=== PATIENT | female | born 1995 | race Caucasian/White ===

== ENCOUNTER 2016-09-04 17:42 | Emergency (ER) | payer MEDICAID ==
--- NOTE | 2016-09-04 17:58 | ER Document Report ---
ED Medical Screen (RME) - General Stated Complaint: SORE THROAT Mode of Arrival: Ambulatory Information source: Patient Notes: Patient presents from the urgent care center referred here for narrowing of subglottic area per xray with c/o sore throat, fever. Reports hurts to swallow, hurts to move neck. + Fever. Treated with penicillin and steroids by urgent care. I have greeted and performed a rapid initial assessment of this patient. A comprehensive ED assessment and evaluation of the patient, analysis of test results and completion of the medical decision making process will be conducted by additional ED providers. TRAVEL OUTSIDE OF THE [place] IN LAST 30 DAYS: No - Related Data Allergies/Adverse Reactions: control Adverse Reaction (Uncoded 09/04/16 17:54) Past Medical History Renal/ Medical History: Reports: Hx Kidney Stones Skin Medical History: Reports Hx Eczema Psychiatric Medical History: Reports: Hx Anxiety Past Surgical History: Reports: Hx Adenoidectomy - [place] teeth, Hx Oral Surgery , Hx Tonsillectomy - Immunizations Hx Diphtheria, Pertussis, Tetanus Vaccination: No - refuses
[2016-09-04 18:28] LABS: ABSOLUTE MONOCYTES (AUTO) 0.1 10^3/uL (0.1-1.4); ABSOLUTE NEUT (AUTO) 8.5 10^3/uL (1.7-8.2); BASOPHILS % (AUTO) 0.1 % (0-2); EOSINOPHILS % (AUTO) 0.1 % (0-6); HEMATOCRIT 41.7 % (36.0-47.0); HEMOGLOBIN 13.5 g/dL (12.0-15.5); HGB HCT DIFFERENCE -1.2; LYMPHOCYTES % (AUTO) 10.8 % (13-45); MEAN CORPUSCULAR HEMOGLOBIN 25.3 pg (27.0-33.4); MEAN CORPUSCULAR HGB CONC 32.3 g/dL (32.0-36.0); MEAN CORPUSCULAR VOLUME 78 fl (80-97); MONOCYTES % (AUTO) 1.5 % (3-13); RED BLOOD COUNT 5.33 10^6/uL (3.72-5.28); RED CELL DISTRIBUTION WIDTH 14.4 % (11.5-14.0); SEGMENTED NEUTROPHILS % (AUTO) 87.5 % (42-78); WHITE BLOOD COUNT 9.7 10^3/uL (4.0-10.5)
[2016-09-04 18:43] LABS: ALANINE AMINOTRANSFERASE 21 U/L (9-52); ALBUMIN 4.4 g/dL (3.5-5.0); ALKALINE PHOSPHATASE 71 U/L (38-126); ANION GAP 12 (5-19); ASPARTATE AMINO TRANSFERASE 17 U/L (14-36); BILIRUBIN,TOTAL 0.3 mg/dL (0.2-1.3); BLOOD UREA NITROGEN 7 mg/dL (7-20); CALCIUM 9.9 mg/dL (8.4-10.2); CARBON DIOXIDE 29 mmol/L (22-30); CHLORIDE 103 mmol/L (98-107); CREATININE RESULT 0.78 mg/dL (0.52-1.25); GLUCOSE 87 mg/dL (75-110); POTASSIUM 4.2 mmol/L (3.6-5.0); SODIUM 143.5 mmol/L (137-145); TOTAL PROTEIN 7.6 g/dL (6.3-8.2)
--- NOTE | 2016-09-04 19:20 | ER Document Report ---
ED ENT - General Chief Complaint: Sore Throat Stated Complaint: SORE THROAT Mode of Arrival: Ambulatory Information source: Patient Notes: 21 y/o F presents to ED c/o persistent sore throat over the last 2 days. Pt reports was evaluated at urgent care 2 days ago, diagnosed with strep throat and prescribed course of penVk which she states has been taking as directed. Reports symptoms have not improved so she returned to urgent care and was given dose of Decadron 10mg IM and had soft tissue neck xray done. Pt reports was referred to ED for further evaluation. Denies fever, sob, vomiting or drooling. TRAVEL OUTSIDE OF THE [place] IN LAST 30 DAYS: No - HPI Patient complains to provider of: Throat problem Onset/Duration: Persistent Quality of pain: Achy Severity: Moderate Pain Level: 3 Context: Recent Illness Location of pain: Throat Associated symptoms: Sore throat Similar symptoms previously: Yes Recently seen / treated by doctor: Yes - Related Data Allergies/Adverse Reactions: control Adverse Reaction (Uncoded 09/04/16 17:54) Past Medical History - General Information source: Patient - Social History Smoking Status: Current Every Day Smoker Chew tobacco use (# tins/day): No Frequency of alcohol use: Social Drug Abuse: None Lives with: Family Family History: Reviewed & Not Pertinent Patient has suicidal ideation: No Patient has homicidal ideation: No Renal/ Medical History: Reports: Hx Kidney Stones. Denies: Hx Peritoneal Dialysis Skin Medical History: Reports Hx Eczema Psychiatric Medical History: Reports: Hx Anxiety Past Surgical History: Reports: Hx Adenoidectomy - [place] teeth, Hx Oral Surgery , Hx Tonsillectomy - Immunizations Hx Diphtheria, Pertussis, Tetanus Vaccination: Yes Review of Systems - Review of Systems Constitutional: No symptoms reported EENT: See HPI Cardiovascular: No symptoms reported Respiratory: No symptoms reported Gastrointestinal: No symptoms reported Genitourinary: No symptoms reported Female Genitourinary: No symptoms reported Musculoskeletal: No symptoms reported Skin: No symptoms reported Hematologic/Lymphatic: No symptoms reported Neurological/Psychological: No symptoms reported -: Yes All other systems reviewed and negative Physical Exam - Vital signs Vitals: Temp Pulse Resp BP Pulse Ox 98.1 F 66 16 128/84 H 99 09/04/16 18:00 09/04/16 18:00 09/04/16 18:00 09/04/16 18:00 09/04/16 18:00 Interpretation: Normal - General General appearance: Appears well, Alert In distress: None - HEENT Head: Normocephalic, Atraumatic Eyes: Normal Conjunctiva: Normal Eyelashes: Normal Pupils: PERRL Ears: Normal External canal: Normal Tympanic membrane: Normal Sinus: Normal Nasal: Normal Mouth/Lips: Normal Mucous membranes: Normal, Moist Pharynx: Erythema. No: Normal, Blood in hypopharynx, Exudate, Peritonsillar abscess, Post nasal drainage, Retropharyngeal abscess, Tonsillar hypertrophy, Uvular edema, Potential airway comprom., Other Neck: Normal. No: Anterior cervical chain, Posterior cervical chain, Lymphadenopathy, Meningismus, Subcutaneous emphysema - Respiratory Respiratory status: No respiratory distress Chest status: Nontender Breath sounds: Normal Chest palpation: Normal - Cardiovascular Rhythm: Regular Heart sounds: Normal auscultation Murmur: No Pulses: Normal: Radial Normal capillary refill: Yes - Abdominal Inspection: Normal Distension: No distension Bowel sounds: Normal Tenderness: Nontender Organomegaly: No organomegaly - Back Back: Normal, Nontender - Extremities General upper extremity: Normal inspection, Nontender, Normal color, Normal ROM , Normal temperature General lower extremity: Normal inspection, Nontender, Normal color, Normal ROM , Normal temperature, Normal weight bearing. No: Sloan's sign - Neurological Neuro grossly intact: Yes Cognition: Normal Orientation: AAOx4 Nesmith Coma Scale Eye Opening: Spontaneous [place] Coma Scale Verbal: Oriented Nesmith Coma Scale Motor: Obeys Commands Nesmith Coma Scale Total: 15 Speech: Normal Motor strength normal: LUE, RUE, LLE, RLE Sensory: Normal - Psychological Associated symptoms: Normal affect, Normal mood - Skin Skin Temperature: Warm Skin Moisture: Dry Skin Color: Normal Skin Turgor: Elastic Course - Re-evaluation Re-evalutation: 09/04/16 19:20 Patient hemodynamically stable, in no distress, afebrile, tolerating oral fluids without difficulty or vomiting. Review patient's records from urgent care which include negative mono test and soft tissue neck x-ray which shows mild narrowing of the subglottic area with no epiglottitis or other abnormalities. Patient appears stable for discharge and no suggestion of tonsillar abscess, epiglottitis, or other emergent etiology at this time. Patient given Decadron 10 mg IM earlier today at urgent care and therefore does not require additional dose of steroid at this time and was encouraged to continue taking previously prescribed course of Pen-Vee K as directed. Patient presentation and findings were discussed with ED physician Dr. Pedroza who also assessed patient at the bedside and agrees with evaluation and treatment plan. - Vital Signs Vital signs: Temp Pulse Resp BP Pulse Ox 98.2 F 62 16 120/74 97 09/04/16 19:41 09/04/16 19:41 09/04/16 18:00 09/04/16 19:41 09/04/16 19:41 - Laboratory Result Diagrams: 09/04/16 18:06 09/04/16 18:06 Laboratory results interpreted by me: 09/04/16 18:06 RBC 5.33 H MCV 78 L MCH 25.3 L RDW 14.4 H Seg Neutrophils % 87.5 H Lymphocytes % 10.8 L Monocytes % 1.5 L Absolute Neutrophils 8.5 H - Diagnostic Test Radiology reviewed: Image reviewed, Reports reviewed Discharge - Discharge Clinical Impression: Sore throat Condition: Stable Disposition: HOME, SELF-CARE Additional Instructions: SORE THROAT: Sore throats may be caused by viruses, bacteria, or fungi. Most are due to a virus, and must get better on their own. Bacterial sore throats, particularly those due to "strep," need treatment with antibiotics. If an antibiotic is prescribed, be sure to take the medication for a full 10 days. Failure to take the antibiotic can result in complications such as rheumatic fever. Sometimes, an injection of antibiotics is given instead of pills or liquid. This single "shot" is equal in effectiveness to the oral medication. To relieve symptoms, take acetaminophen for pain. Sip clear liquids frequently, or eat popsicles or ice chips. Anesthetic sprays or lozenges may help. Make sure the air in the room is not too dry. Avoid using decongestants or antihistamines. Call the doctor if there is no improvement in two days, or if you have difficulty breathing, increasing throat pain, high fever, rash, or frequent vomiting. FOLLOW-UP CARE: Continue drinking plenty of fluids and taking your previously prescribed antibiotic as directed. The injection of steroid medication you were given earlier today will remain in your system for the next 2-3 days. Return to the emergency department for reevaluation if you do not feel any improvement in 12 hours and definitely if you have any worsening symptoms or any concerns. Prescriptions: Phenol/Sodium Phenolate [Chloraseptic Sore Throat [place] 177 ml] 2 sprays MM Q4HP PRN #1 bottle PRN Reason:
[2016-09-04 19:43] VITALS: BP 120/74
== END 2016-09-04 19:43 | disposition home or self-care (01) ==
LOC: ER 17:42
DX: J02.9 Acute pharyngitis, unspecified (principal); Z79.899 Other long term (current) drug therapy; F17.210 Nicotine dependence, cigarettes, uncomplicated
CPT/HCPCS: 36415; 80053; 85025; 99283

== ENCOUNTER → 2016-09-04 | Outpatient (CLI) | payer MEDICAID | LOC: OD 15:35 | PROVIDERS: ATTEND Nurse Practitioner Acute Care | DX: J02.9 Acute pharyngitis, unspecified (principal) | CPT/HCPCS: 36415; 70360; 86308 ==

== ENCOUNTER → 2017-05-05 | Outpatient (CLI) | payer MEDICAID ==
--- NOTE | 2017-05-05 15:48 | RADIOLOGY REPORT (SQ) ---
EXAM DESCRIPTION: U/S [id number] TRNABD 1GES W/ODOP COMPLETED DATE/TIME: 05/05/2017 2:06 pm REASON FOR STUDY: ENCOUNTER FOR SUPERVISION OF OTHER NORMAL , FIRST TRIMESTER (Z34.8 Z34.81 ENCOUNTER FOR SUPRVSN OF NORMAL , FIRST TRIM COMPARISON: None. TECHNIQUE: Transabdominal static and realtime grayscale images acquired of the pelvis. Additional se lected spectral and color Doppler images recorded. All images stored on PACs. bHCG: Not available. LIMITATIONS: None. FINDINGS: FETUS: There are 2 well-formed gestational sacs with poles. EGA: 7 weeks 1 day MILLY: 12/21/2017 FHR: 150/145 beats per minute. SUBCHORIONIC BLEED: No SIZE OF BLEED: Not applicable. UTERUS: No masses. No anomalies. 11.3 x 6.6 x 5.9 cm. CERVICAL LENGTH: 3 cm. Closed. RIGHT ADNEXA: Right ovary measures 2.5 x 2.5 x 2.6 cm. There is a 2 x 1.8 x 1.7 cm cyst. No adnexal free fluid. No adnexal masses. LEFT ADNEXA: Left ovary measures 3.5 x 3.2 x 1.8 cm and is normal. No adnexal free fluid. No adnexal masses. FREE FLUID: None. OTHER: No other significant finding. IMPRESSION: There is a live twin gestation of 7 weeks 1 day with an estimated date of delivery of 12/21/2017. Trimester of : First - 0 to 13 weeks. TECHNICAL DOCUMENTATION: JOB ID: [id number] [employer]- All Rights Reserved
== END ==
LOC: RAD 13:06
PROVIDERS: ATTEND Nurse Practitioner Women's Health
DX: Z34.81 Encounter for supervision of other normal pregnancy, first trimester (principal)
CPT/HCPCS: 76801; 76802

== ENCOUNTER 2017-05-06 14:05 | Emergency (ER) | payer MEDICAID ==
[2017-05-06] MEDS ORDERED: NORMAL SALINE 1000 ML 1,000 ML IV ONE ×2 (15:44→17:09)
--- NOTE | 2017-05-06 15:48 | ER Document Report ---
HPI - HPI Patient complains to provider of: vomiting Onset: Other Onset/Duration: Persistent Quality of pain: Achy Severity: Mild Pain Level: 3 Context: Patient states she is currently and has been experiencing vomiting for several weeks. Is currently being seen by the health department, had an ultrasound yesterday which showed an intrauterine with twins. Patient denies any vaginal bleeding. Patient denies fever. She states she had similar episodes of vomiting with previous pregnancies. Associated Symptoms: Vomiting Exacerbated by: Denies Relieved by: Denies Similar symptoms previously: Yes Recently seen / treated by doctor: Yes - ROS ROS below otherwise negative: Yes Systems Reviewed and Negative: Yes All other systems reviewed and negative - CONSTITUTIONAL Constitutional: DENIES: Fever - EENT EENT: DENIES: Congestion - NEURO Neurology: DENIES: Headache - CARDIOVASCULAR Cardiovascular: DENIES: Chest pain - RESPIRATORY Respiratory: DENIES: Trouble Breathing - GASTROINTESTINAL Gastrointestinal: REPORTS: Abdominal Pain - Epigastric - URINARY Urinary: DENIES: Dysuria - REPRODUCTIVE Reproductive: REPORTS: : - MUSCULOSKELETAL Musculoskeletal: DENIES: Extremity pain - DERM Skin Color: Normal Past Medical History - General Information source: Patient - Social History Smoking Status: Never Smoker Frequency of alcohol use: None Drug Abuse: None Lives with: Family Family History: Reviewed & Not Pertinent Patient has suicidal ideation: No Patient has homicidal ideation: No Renal/ Medical History: Reports: Hx Kidney Stones Skin Medical History: Reports Hx Eczema Psychiatric Medical History: Reports: Hx Anxiety Past Surgical History: Reports: Hx Adenoidectomy - [place] teeth, Hx Oral Surgery , Hx Tonsillectomy - Immunizations Hx Diphtheria, Pertussis, Tetanus Vaccination: Yes Vertical Provider Document - CONSTITUTIONAL Agree With Documented VS: Yes Exam Limitations: No Limitations General Appearance: WD/WN, No Apparent Distress - INFECTION CONTROL TRAVEL OUTSIDE OF THE [place] IN LAST 30 DAYS: No - HEENT HEENT: Atraumatic, Normal ENT Exam, Normocephalic - NECK Neck: Normal Inspection, Supple - RESPIRATORY Respiratory: Breath Sounds Normal, No Respiratory Distress O2 Sat by Pulse Oximetry: 100 - CARDIOVASCULAR Cardiovascular: Regular Rate, Regular Rhythm - GI/ABDOMEN Gastrointestinal: Abdomen Soft, Abdomen Tender - Mild tenderness across epigastric area, Normal Bowel Sounds - REPRODUCTIVE Female Genitalia: Normal Inspection - MUSCULOSKELETAL/EXTREMETIES Musculoskeletal/Extremeties: MAEW - NEURO Level of Consciousness: Awake, Alert, Appropriate - DERM Integumentary: Warm, Dry, No Rash Course - Re-evaluation Re-evalutation: 05/06/17 17:55 Patient states she is feeling better after bags of fluid and Tylenol for her headache. States she does have a history of UTIs when asked because her urine today showed bacteria in it. - Vital Signs Vital signs: Temp Pulse Resp BP Pulse Ox 98.6 F 75 14 135/62 H 100 05/06/17 14:33 05/06/17 14:33 05/06/17 14:33 05/06/17 14:33 05/06/17 14:33 Discharge - Discharge Clinical Impression: Hyperemesis arising during , Bacteria in urine Condition: Good Disposition: HOME, SELF-CARE Instructions: Antinausea Medication ([facility]) Additional Instructions: You are being given antibiotics for 3 days pending urine culture. Phenergan as needed for nausea Push fluids Call your CLERICAL ADMINISTRATIVE ASSISTANT tomorrow for recheck Return as needed Prescriptions: Nitrofurantoin Monohyd/M-Cryst [Macrobid 100 mg Capsule] 100 mg PO BID #10 capsule Promethazine HCl [Phenergan 25 mg Tablet] 25 mg PO ASDIR PRN #15 tablet PRN Reason:
[2017-05-06] MEDS ORDERED: PYRIDOXINE HCL 50 MG TABLET PO ONE (16:50)
[2017-05-06] MEDS ORDERED: ACETAMINOPHEN 325 MG TABLET PO ONE (16:50)
[2017-05-06 17:01] LABS: APPEARANCE,URINE SLIGHTLY-CLOUDY; BILIRUBIN,URINE NEGATIVE (NEGATIVE); GLUCOSE, URINE NEGATIVE (NEGATIVE); KETONES,URINE NEGATIVE (NEGATIVE); LEUKOCYTE ESTERASE,URINE MODERATE (NEGATIVE); NITRITE,URINE NEGATIVE (NEGATIVE); PROTEIN,URINE NEGATIVE (NEGATIVE)
[2017-05-06 18:42] VITALS: BP 112/60
== END 2017-05-06 18:42 | disposition home or self-care (01) ==
LOC: ER 14:05
DX: O21.0 Mild hyperemesis gravidarum (principal); R82.71 Bacteriuria; Z87.440 Personal history of urinary (tract) infections; Z87.442 Personal history of urinary calculi
CPT/HCPCS: 99283; 96360; 96361; 87086; 87088; 81001; J3490 ×2; J7030

== ENCOUNTER 2017-05-21 21:18 | Emergency (ER) | payer MEDICAID ==
[2017-05-21 21:31] VITALS: BP 121/82
--- NOTE | 2017-05-21 22:50 | ER Document Report ---
ED Medical Screen (RME) - General Chief Complaint: Vaginal Bleeding Stated Complaint: LOWER BACK PAIN,VAGINAL BLEEDING Time Seen by Provider: 05/21/17 22:40 Notes: Patient is a 9-1/2 week gravid with twins 21-year-old female presents to the emergency department complaining of pelvic cramping, spotting and low back pain. She states that she was working on her feet all today and she felt that her back pain was getting worse. She states she has been having it for a couple of days but felt more severe today. She then got home from work and she noticed some dark bleeding on her underwear. States she has been having pelvic cramping and was told it was nothing on Friday which she saw her primary care doctor. Otherwise she denies any other issues. TRAVEL OUTSIDE OF THE [place] IN LAST 30 DAYS: No - Related Data Allergies/Adverse Reactions: control Adverse Reaction (Uncoded 05/06/17 14:33) Past Medical History Renal/ Medical History: Reports: Hx Kidney Stones. Denies: Hx Peritoneal Dialysis Skin Medical History: Reports Hx Eczema Psychiatric Medical History: Reports: Hx Anxiety Past Surgical History: Reports: Hx Adenoidectomy - [place] teeth, Hx Oral Surgery , Hx Tonsillectomy - Immunizations Hx Diphtheria, Pertussis, Tetanus Vaccination: Yes Physical Exam - Vital signs Vitals: Temp Pulse Resp BP Pulse Ox 97.8 F 115 H 18 121/82 100 05/21/17 21:24 05/21/17 21:24 05/21/17 21:24 05/21/17 21:24 05/21/17 21:24 - General General appearance: Appears well, Alert In distress: None - Respiratory Respiratory status: No respiratory distress Chest status: Nontender Breath sounds: Normal Chest palpation: Normal - Cardiovascular Rhythm: Regular Heart sounds: Normal auscultation, S1 appreciated, S2 appreciated Gallop: None auscultated Pulses: Normal: Radial Course - Vital Signs Vital signs: Temp Pulse Resp BP Pulse Ox 97.8 F 115 H 18 121/82 100 05/21/17 21:24 05/21/17 21:24 05/21/17 21:24 05/21/17 21:24 05/21/17 21:24
[2017-05-21 23:25] LABS: APPEARANCE,URINE CLEAR; BILIRUBIN,URINE NEGATIVE (NEGATIVE); GLUCOSE, URINE NEGATIVE (NEGATIVE); KETONES,URINE NEGATIVE (NEGATIVE); LEUKOCYTE ESTERASE,URINE LARGE (NEGATIVE); NITRITE,URINE NEGATIVE (NEGATIVE); PROTEIN,URINE NEGATIVE (NEGATIVE); URINE SPECIFIC GRAVITY 1.004; UROBILINOGEN,URINE NEGATIVE mg/dL (<2.0)
[2017-05-21 23:39] LABS: ABSOLUTE LYMPHOCYTES (AUTO) 2.5 10^3/uL (0.5-4.7); ABSOLUTE MONOCYTES (AUTO) 0.5 10^3/uL (0.1-1.4); BASOPHILS % (AUTO) 0.1 % (0-2); EOSINOPHILS % (AUTO) 0.1 % (0-6); HEMATOCRIT 34.5 % (36.0-47.0); HEMOGLOBIN 11.9 g/dL (12.0-15.5); HGB HCT DIFFERENCE 1.2; LYMPHOCYTES % (AUTO) 19.1 % (13-45); MEAN CORPUSCULAR HEMOGLOBIN 27.3 pg (27.0-33.4); MEAN CORPUSCULAR HGB CONC 34.5 g/dL (32.0-36.0); MEAN CORPUSCULAR VOLUME 79 fl (80-97); RED BLOOD COUNT 4.35 10^6/uL (3.72-5.28); RED CELL DISTRIBUTION WIDTH 14.5 % (11.5-14.0); SEGMENTED NEUTROPHILS % (AUTO) 76.7 % (42-78)
[2017-05-21 23:48] LABS: ALANINE AMINOTRANSFERASE 33 U/L (9-52); ALBUMIN 4.1 g/dL (3.5-5.0); ALKALINE PHOSPHATASE 44 U/L (38-126); ANION GAP 10 (5-19); ASPARTATE AMINO TRANSFERASE 16 U/L (14-36); BILIRUBIN,DIRECT 0.2 mg/dL (0.0-0.4); BILIRUBIN,TOTAL 0.2 mg/dL (0.2-1.3); BLOOD UREA NITROGEN 7 mg/dL (7-20); CALCIUM 9.6 mg/dL (8.4-10.2); CARBON DIOXIDE 24 mmol/L (22-30); CHLORIDE 104 mmol/L (98-107); CREATININE RESULT 0.57 mg/dL (0.52-1.25); GLUCOSE 93 mg/dL (75-110); POTASSIUM 3.7 mmol/L (3.6-5.0); SODIUM 137.9 mmol/L (137-145); TOTAL PROTEIN 6.6 g/dL (6.3-8.2)
--- NOTE | 2017-05-22 01:14 | RADIOLOGY REPORT (SQ) ---
EXAM DESCRIPTION: U/S 1TRIMESTER/1GEST W/DOPPLER CLINICAL HISTORY: 21 years, Female, PELVIC CRAMPING AND SPOTTING COMPARISON: Compared to the obstetrical ultrasound examination of May 05, 2017. TECHNIQUE: History scale and M-mode techniques were utilized to perform this examination. LIMITATIONS: None. FINDINGS: Twin . Suspect dichorionic/diamniotic twin . Cervical os is closed. Cervical length measures approximately 3.2 cm. Placenta previa. Twin A: Twin A is located to the right. CRL equals 3.2 cm equaling gestational age of 10 weeks 1 day. Consistent heart rate of 182 bpm using M-mode technique. Twin B: Twin B is located to the left. CRL equals 2.9 cm equaling gestational age of 9 weeks 5 days. Consistent heart rate of 168 bpm using M-mode technique. Sliver-like hypodensity inferior to the placenta measuring 13 mm x 5.1 mm x 21 mm in greatest dimension. Suspect this represents a small focus of subchorionic hemorrhage. Noncalcified none septated right ovarian cyst measuring 2.1 cm in greatest dimension. Overall, the right ovary measures 2.9 cm x 2.7 cm x 2.6 cm in greatest dimension. Strong arterial and venous blood flow to the right ovary using color Doppler and spectral Doppler waveform analysis techniques respectively. The left ovary appears normal and measures 2.8 cm x 4.0 cm x 2.3 cm in greatest dimension. There is strong arterial and venous blood flow to left ovary using color Doppler and spectral Doppler waveform analysis techniques respectively. No free pelvic fluid. IMPRESSION: 1. Living DC/DA twin with twin A gestational age equaling 10 weeks 1 day and twin B gestational age equaling 9 weeks 5 days. 2. Benign-appearing 2.1 cm right ovarian cyst possibly representing a right corpus luteal cyst. The ovaries are otherwise normal. No evidence of ovarian torsion. 3. Small region of suspected subchorionic hemorrhage just inferior to the gestational sac as described above. 4. No free pelvic fluid. 2011 [employer]- All Rights Reserved
[2017-05-22] MEDS ORDERED: CEPHALEXIN 500 MG CAPSULE PO ONE (01:28)
--- NOTE | 2017-05-22 01:35 | ER Document Report ---
ED General - General Chief Complaint: Vaginal Bleeding Stated Complaint: LOWER BACK PAIN,VAGINAL BLEEDING Time Seen by Provider: 05/21/17 22:40 Notes: Patient is a 21-year-old female at approximately 10 weeks with twin who presents with a small amount of vaginal bleeding today as well as lower abdominal cramping and back pain. Does describe the lower abdominal pain and back pain as a dull, intermittent, cramping pain. States that the pain is moderately worsened by standing up and walking around and improved with rest. She denies a history of similar pain during this . States she became concerned when she had a small amount of blood on her underwear today that appeared to be more like a brownish discharge than micky blood. She has not spoken to her KEY ATTENDANT regarding today's concerns. No history of similar symptoms during this . She has not had any fever, but does note dysuria. TRAVEL OUTSIDE OF THE [place] IN LAST 30 DAYS: No - Related Data Allergies/Adverse Reactions: control Adverse Reaction (Uncoded 05/06/17 14:33) Past Medical History - General Information source: Patient - Social History Smoking Status: Never Smoker Frequency of alcohol use: None Drug Abuse: None Lives with: Spouse/Significant other Family History: Reviewed & Not Pertinent Patient has suicidal ideation: No Patient has homicidal ideation: No Renal/ Medical History: Reports: Hx Kidney Stones. Denies: Hx Peritoneal Dialysis Skin Medical History: Reports Hx Eczema Psychiatric Medical History: Reports: Hx Anxiety Past Surgical History: Reports: Hx Adenoidectomy - [place] teeth, Hx Oral Surgery , Hx Tonsillectomy - Immunizations Hx Diphtheria, Pertussis, Tetanus Vaccination: Yes Review of Systems - Review of Systems Notes: Constitutional: Negative for fever. HENT: Negative for sore throat. Eyes: Negative for visual changes. Cardiovascular: Negative for chest pain. Respiratory: Negative for shortness of breath. Gastrointestinal: Positive for lower abdominal pain. Genitourinary: Positive for dysuria. Musculoskeletal: Positive for back pain. Skin: Negative for rash. Neurological: Negative for headaches, weakness or numbness. 10 point ROS negative except as marked above and in HPI. Physical Exam - Vital signs Vitals: Temp Pulse Resp BP Pulse Ox 97.8 F 115 H 18 121/82 100 05/21/17 21:24 05/21/17 21:24 05/21/17 21:24 05/21/17 21:24 05/21/17 21:24 Interpretation: Tachycardic Notes: PHYSICAL EXAMINATION: GENERAL: Well-appearing, well-nourished and in no acute distress. HEAD: Atraumatic, normocephalic. EYES: Pupils equal round and reactive to light, extraocular movements intact, sclera anicteric, conjunctiva are normal. ENT: nares patent, oropharynx clear without exudates. Moist mucous membranes. NECK: Normal range of motion, supple without lymphadenopathy LUNGS: Breath sounds clear to auscultation bilaterally and equal. No wheezes rales or rhonchi. HEART: Regular rate and rhythm without murmurs ABDOMEN: Gravid uterus. Soft, nontender, normoactive bowel sounds. No guarding , no rebound. No masses appreciated. EXTREMITIES: Normal range of motion, no pitting or edema. No cyanosis. NEUROLOGICAL: No focal neurological deficits. Moves all extremities spontaneously and on command. PSYCH: Normal mood, normal affect. SKIN: Warm, Dry, normal turgor, no rashes or lesions noted. Course - Re-evaluation Re-evalutation: 05/22/17 03:34 Patient presents with a mild amount of vaginal bleeding in the setting of an early first trimester . Patient has no abdominal or back tenderness at time of presentation on examination. No active bleeding at time of presentation. She is Rh positive. Patient's abdominal exam is otherwise benign without any focal tenderness. Repeat transvaginal ultrasound here shows a possible small subchorionic hemorrhage and to viable fetuses. I do not suspect an acute appendicitis, pyelonephritis, urinalysis does show findings consistent with likely cystitis particularly given patient's report of pressure and burning with urination. A culture has been sent and she was started on cephalexin. Or bowel obstruction. At this time will discharge with return precautions and follow-up recommendations. Verbal discharge instructions given a the bedside and opportunity for questions given. Medication warnings reviewed. Patient is in agreement with this plan and has verbalized understanding of return precautions and the need for primary care follow-up in the next 24-72 hours. - Vital Signs Vital signs: Temp Pulse Resp BP Pulse Ox 97.8 F 115 H 18 121/82 100 05/21/17 21:24 05/21/17 21:24 05/21/17 21:24 05/21/17 21:24 05/21/17 21:24 - Laboratory Result Diagrams: 05/21/17 23:06 05/21/17 23:06 Laboratory results interpreted by me: 05/21/17 05/21/17 05/21/17 22:30 23:06 23:06 WBC 13.0 H Hgb 11.9 L Hct 34.5 L MCV 79 L RDW 14.5 H Absolute Neutrophils 10.0 H Beta HCG, Quant 991131.00 H Urine Blood SMALL H Ur Leukocyte Esterase LARGE H - Diagnostic Test Radiology reviewed: Reports reviewed Discharge - Discharge Clinical Impression: Cystitis, Vaginal bleeding during , antepartum Condition: Good Disposition: HOME, SELF-CARE Additional Instructions: Your ultrasound today shows a living intrauterine . You do have a small subchorionic hemorrhage. Many pregnancies with this complication can go on to become normal pregnancies. Please follow closely with your primary care KEY ATTENDANT. Please return if you develop severe abdominal pain, bleeding that goes through more than 2 pads for more than 2 hours, pass out, or have any other symptoms that are concerning to you. Please follow-up closely with your OBGYN regarding todays visit. Your also being started on a course of antibiotics his urine seems to suggest an infection at this time. Take until completed. Prescriptions: Cephalexin Monohydrate [Keflex 500 mg Capsule] 500 mg PO Q6H 5 Days capsule
== END 2017-05-22 01:58 | disposition home or self-care (01) ==
LOC: ER 21:18
DX: O23.11 Infections of bladder in pregnancy, first trimester (principal); O20.8 Other hemorrhage in early pregnancy; O26.891 Other specified pregnancy related conditions, first trimester; O30.041 Twin pregnancy, dichorionic/diamniotic, first trimester; Z3A.09 9 weeks gestation of pregnancy
CPT/HCPCS: 36415; 76801; 76802; 80053; 81001; 84702; 85025; 87086; 87088; 93976; 99284

== ENCOUNTER 2017-08-08 23:52 | Outpatient (CLI) | payer MEDICAID ==
[2017-08-09 00:28] LABS: APPEARANCE,URINE CLEAR; BILIRUBIN,URINE NEGATIVE (NEGATIVE); GLUCOSE, URINE NEGATIVE (NEGATIVE); KETONES,URINE NEGATIVE (NEGATIVE); LEUKOCYTE ESTERASE,URINE SMALL (NEGATIVE); NITRITE,URINE NEGATIVE (NEGATIVE); PROTEIN,URINE NEGATIVE (NEGATIVE); URINE SPECIFIC GRAVITY 1.003; UROBILINOGEN,URINE NEGATIVE mg/dL (<2.0)
[2017-08-09 01:17] LABS: URINE BARBITURATES SCREEN NEGATIVE; URINE METHADONE SCREEN NEGATIVE; URINE OPIATES LOW NEGATIVE; URINE PHENCYCLIDINE SCREEN NEGATIVE
--- NOTE | 2017-08-09 02:37 | RADIOLOGY REPORT (SQ) ---
EXAM DESCRIPTION: U/S OB LIMITED CLINICAL HISTORY: 21 years, Female, well being and cervical length COMPARISON: 10.4.17 TECHNIQUE/LIMITATIONS: Limited, targeted exam requested obstetrical parameters. Transvaginal. FINDINGS: Cervical: Length: 3.7 cm. Closed. Twin A: Cardiac activity: 141 bpm. Breech. Posterior placental location. Largest fluid pocket: 5.5 cm. Twin B: Cardiac activity: 153 bpm. Transverse. Anterior placenta location. Largest fluid pocket: 4.8 cm. PHILOMENA 17.1 cm, clear. IMPRESSION: Limited, targeted exam requested obstetrical parameters. 2010 [employer]- All Rights Reserved
== END 2017-08-09 02:54 | disposition home or self-care (01) ==
LOC: LC 23:52
PROVIDERS: ATTEND Obstetrics & Gynecology
PROC: 4A1HXCZ Monitoring of Products of Conception, Cardiac Rate, External Approach (ICD-10-PCS; principal; 2017-08-08)
DX: O47.02 False labor before 37 completed weeks of gestation, second trimester (principal); Z3A.20 20 weeks gestation of pregnancy
CPT/HCPCS: 76815; 80307; 81001

== ENCOUNTER 2017-09-23 11:28 | Outpatient (CLI) | payer MEDICAID ==
[2017-09-23 11:56] LABS: AMORPHOUS SEDIMENT,URINE TRACE /HPF; APPEARANCE,URINE SLIGHTLY-CLOUDY; BILIRUBIN,URINE NEGATIVE (NEGATIVE); COLOR,URINE YELLOW; GLUCOSE, URINE NEGATIVE (NEGATIVE); KETONES,URINE NEGATIVE (NEGATIVE); LEUKOCYTE ESTERASE,URINE LARGE (NEGATIVE); NITRITE,URINE NEGATIVE (NEGATIVE); PROTEIN,URINE NEGATIVE (NEGATIVE); URINE SPECIFIC GRAVITY 1.003; UROBILINOGEN,URINE NEGATIVE mg/dL (<2.0)
[2017-09-23 12:10] LABS: URINE AMPHETAMINES SCREEN NEGATIVE; URINE BARBITURATES SCREEN NEGATIVE; URINE BENZODIAZEPINES SCREEN NEGATIVE; URINE COCAINE SCREEN NEGATIVE; URINE MARIJUANA (THC) SCREEN NEGATIVE; URINE METHADONE SCREEN NEGATIVE; URINE PHENCYCLIDINE SCREEN NEGATIVE
[2017-09-23] MEDS ORDERED: BETAMET ACET/BETAMET NA INJ 6 MG/1 ML IM ONE (13:06)
[2017-09-23] MEDS ORDERED: RINGERS SOLUTION,LACTATED 1,000 ML IV ONE (13:11)
[2017-09-23] MEDS ORDERED: RINGERS SOLUTION,LACTATED 1,000 ML IV PRN (13:11)
[2017-09-23] MEDS ORDERED: PENICILLIN G-K 5 MILLION UNIT VIAL ONE (13:17)
[2017-09-23] MEDS ORDERED: MAGNESIUM SULFATE 4 GM/100 ML RTUPB IV ONE ×2 (13:17→13:18)
[2017-09-23] MEDS ORDERED: MAGNESIUM SULFATE 20 GM/500 ML RTUINJ IV PRN (13:18)
[2017-09-23] MEDS ORDERED: PENICILLIN G POTASSIUM 5,000,000 UNIT in DEXTROSE 5%-WATER 100 ML IV ONE (13:20)
[2017-09-23] MEDS ORDERED: BETAMET ACET/BETAMET NA INJ 6 MG/1 ML ONE (13:30)
[2017-09-23 13:54] LABS: ABSOLUTE EOSINOPHILS # (AUTO) 0.1 10^3/uL (0.0-0.6); ABSOLUTE LYMPHOCYTES (AUTO) 2.2 10^3/uL (0.5-4.7); ABSOLUTE MONOCYTES (AUTO) 0.9 10^3/uL (0.1-1.4); ABSOLUTE NEUT (AUTO) 8.9 10^3/uL (1.7-8.2); BASOPHILS % (AUTO) 0.2 % (0-2); EOSINOPHILS % (AUTO) 0.6 % (0-6); HEMATOCRIT 35.6 % (36.0-47.0); LYMPHOCYTES % (AUTO) 17.9 % (13-45); MEAN CORPUSCULAR HGB CONC 33.6 g/dL (32.0-36.0); MEAN CORPUSCULAR VOLUME 83 fl (80-97); MONOCYTES % (AUTO) 7.6 % (3-13); PLATELET COUNT 192 10^3/uL (150-450); RED BLOOD COUNT 4.28 10^6/uL (3.72-5.28); RED CELL DISTRIBUTION WIDTH 14.4 % (11.5-14.0); SEGMENTED NEUTROPHILS % (AUTO) 73.7 % (42-78); TOTAL CELLS COUNTED % (AUTO) 100 %; WHITE BLOOD COUNT 12.1 10^3/uL (4.0-10.5)
[2017-09-23 14:16] LABS: ALANINE AMINOTRANSFERASE 28 U/L (9-52); ALBUMIN 3.6 g/dL (3.5-5.0); ALKALINE PHOSPHATASE 66 U/L (38-126); ANION GAP 8 (5-19); ASPARTATE AMINO TRANSFERASE 14 U/L (14-36); BILIRUBIN,TOTAL 0.1 mg/dL (0.2-1.3); BLOOD UREA NITROGEN 3 mg/dL (7-20); CARBON DIOXIDE 24 mmol/L (22-30); CHLORIDE 106 mmol/L (98-107); GLUCOSE 84 mg/dL (75-110); LDH 337 U/L (313-618); POTASSIUM 3.7 mmol/L (3.6-5.0); TOTAL PROTEIN 5.8 g/dL (6.3-8.2)
[2017-09-23] MEDS ORDERED: PENICILLIN G POTASSIUM 2,500,000 UNIT in DEXTROSE 5%-WATER 50 ML IV SCH (17:21)
== END 2017-09-23 14:58 | disposition home or self-care (01) ==
LOC: LC 11:28
PROVIDERS: ATTEND Obstetrics & Gynecology Gynecology
PROC: 4A1HXCZ Monitoring of Products of Conception, Cardiac Rate, External Approach (ICD-10-PCS; principal; 2017-09-23)
DX: O60.02 Preterm labor without delivery, second trimester (principal); O30.002 Twin pregnancy, unspecified number of placenta and unspecified number of amniotic sacs, second trimester; Z3A.27 27 weeks gestation of pregnancy
CPT/HCPCS: 59899; 94760; 96372; 36415; 83615; 85025; 86592; 80053; 81001; 86701; 80307; 82239; J3475; J2540; J0702

== ENCOUNTER 2017-10-19 16:04 | Inpatient (IN) | payer MEDICAID ==
[2017-10-19] MEDS ORDERED: PENICILLIN G-K 5 MILLION UNIT VIAL ONE ×2 (16:43→20:54)
[2017-10-19] MEDS ORDERED: BETAMET ACET/BETAMET NA INJ 6 MG/1 ML ONE (16:43)
[2017-10-19] MEDS ORDERED: NIFEDIPINE 10 MG CAPSULE ONE ×3 (16:43→17:55)
[2017-10-19] MEDS ORDERED: PENICILLIN G POTASSIUM 5,000,000 UNIT in DEXTROSE 5%-WATER 100 ML IV ONE (17:00)
[2017-10-19] MEDS ORDERED: NALBUPHINE HCL INJ 10 MG/1 ML AMPULE IV ONE (17:00)
[2017-10-19 17:01] LABS: ABSOLUTE EOSINOPHILS # (AUTO) 0.1 10^3/uL (0.0-0.6); ABSOLUTE LYMPHOCYTES (AUTO) 2.9 10^3/uL (0.5-4.7); ABSOLUTE MONOCYTES (AUTO) 0.9 10^3/uL (0.1-1.4); ABSOLUTE NEUT (AUTO) 10.5 10^3/uL (1.7-8.2); BASOPHILS % (AUTO) 0.1 % (0-2); EOSINOPHILS % (AUTO) 0.5 % (0-6); HEMATOCRIT 37.8 % (36.0-47.0); HEMOGLOBIN 12.6 g/dL (12.0-15.5); LYMPHOCYTES % (AUTO) 19.9 % (13-45); MEAN CORPUSCULAR HEMOGLOBIN 27.7 pg (27.0-33.4); MEAN CORPUSCULAR HGB CONC 33.2 g/dL (32.0-36.0); MEAN CORPUSCULAR VOLUME 83 fl (80-97); MONOCYTES % (AUTO) 6.2 % (3-13); PLATELET COUNT 199 10^3/uL (150-450); RED BLOOD COUNT 4.54 10^6/uL (3.72-5.28); RED CELL DISTRIBUTION WIDTH 13.9 % (11.5-14.0); SEGMENTED NEUTROPHILS % (AUTO) 73.3 % (42-78); TOTAL CELLS COUNTED % (AUTO) 100 %; WHITE BLOOD COUNT 14.4 10^3/uL (4.0-10.5)
[2017-10-19 17:04] LABS: APPEARANCE,URINE CLEAR; BILIRUBIN,URINE NEGATIVE (NEGATIVE); COLOR,URINE YELLOW; GLUCOSE, URINE NEGATIVE (NEGATIVE); KETONES,URINE TRACE mg/dL (NEGATIVE); LEUKOCYTE ESTERASE,URINE LARGE (NEGATIVE); NITRITE,URINE NEGATIVE (NEGATIVE); PROTEIN,URINE NEGATIVE (NEGATIVE); URINE SPECIFIC GRAVITY 1.004; UROBILINOGEN,URINE NEGATIVE mg/dL (<2.0)
[2017-10-19] MEDS ORDERED: PROMETHAZINE HCL INJ 25 MG/1 ML VIAL IV ONE (17:15)
[2017-10-19] MEDS ORDERED: BETAMET ACET/BETAMET NA INJ 6 MG/1 ML IM ONE (17:15)
[2017-10-19 17:23] LABS: URINE AMPHETAMINES SCREEN NEGATIVE; URINE BARBITURATES SCREEN NEGATIVE; URINE BENZODIAZEPINES SCREEN NEGATIVE; URINE COCAINE SCREEN NEGATIVE; URINE MARIJUANA (THC) SCREEN NEGATIVE; URINE METHADONE SCREEN NEGATIVE; URINE PHENCYCLIDINE SCREEN NEGATIVE
[2017-10-19] MEDS: NIFEDIPINE 10 MG CAPSULE PO PRN ×3 (17:26→17:56)
[2017-10-19] MEDS: RINGERS SOLUTION,LACTATED 1,000 ML IV PRN ×2 (17:29→18:43)
[2017-10-19] MEDS ORDERED: NALBUPHINE HCL INJ 10 MG/1 ML AMPULE IV PRN (17:46)
[2017-10-19] MEDS ORDERED: PROMETHAZINE HCL INJ 25 MG/1 ML VIAL IV PRN (17:46)
[2017-10-19] MEDS ORDERED: PROMETHAZINE HCL INJ 25 MG/1 ML VIAL ONE (18:40)
[2017-10-19] MEDS ORDERED: NALBUPHINE HCL INJ 10 MG/1 ML AMPULE ONE (18:40)
[2017-10-19] MEDS ORDERED: CITRIC ACID/SODIUM CITRATE ORAL SOLN 15 ML UDCUP ONE (19:46)
[2017-10-19] MEDS ORDERED: MISOPROSTOL 0.2 MG TABLET ONE (19:46)
[2017-10-19] MEDS ORDERED: CEFAZOLIN 2 GM/D5W RTU 2 GM/50 ML RTUPB IV ONE (19:47)
[2017-10-19] MEDS ORDERED: OXYTOCIN/NORMAL SALINE 20 UNIT/1,000 ML RTUINJ ONE (19:47)
[2017-10-19] MEDS: PENICILLIN G POTASSIUM 2,500,000 UNIT in DEXTROSE 5%-WATER 50 ML IV SCH (21:02)
[2017-10-19] MEDS ORDERED: PHENYLEPHRINE HCL INJ/PF 10 MG/1 ML SDV ONE (21:24)
[2017-10-19] MEDS ORDERED: EPHEDRINE SULFATE INJ 50 MG/1 ML AMPULE ONE (21:24)
[2017-10-19] MEDS ORDERED: FENTANYL CITRATE INJ/PF 100 MCG/2 ML AMPUL ONE (21:24)
[2017-10-19] MEDS ORDERED: FENTANYL/BUPIVACAINE/NS/PF 200 MCG/100 ML RTUINJ EPI ONE (21:25)
[2017-10-19] MEDS ORDERED: BUPIVACAINE HCL 0.25 % INJ/PF (2.5 MG/1 ML) 30 ML VIAL ONE (21:25)
[2017-10-20] MEDS ORDERED: PENICILLIN G-K 5 MILLION UNIT VIAL ONE ×3 (00:52→08:52)
[2017-10-20] MEDS: PENICILLIN G POTASSIUM 2,500,000 UNIT in DEXTROSE 5%-WATER 50 ML IV SCH ×2 (00:57→04:48)
[2017-10-20] MEDS ORDERED: NIFEDIPINE 10 MG CAPSULE ONE ×4 (03:43→19:45)
[2017-10-20] MEDS ORDERED: BUPIVACAINE HCL 0.25 % INJ/PF (2.5 MG/1 ML) 30 ML VIAL ONE (04:05)
[2017-10-20] MEDS ORDERED: FENTANYL/BUPIVACAINE/NS/PF 200 MCG/100 ML RTUINJ EPI ONE (04:05)
[2017-10-20] MEDS ORDERED: PENICILLIN G-K 5 MILLION UNIT VIAL IV SCH (08:00)
[2017-10-20] MEDS ORDERED: DIPHENHYDRAMINE HCL 25 MG CAPSULE PO ONE (13:46)
[2017-10-20] MEDS ORDERED: DIPHENHYDRAMINE HCL 25 MG CAPSULE ONE (13:51)
[2017-10-21] MEDS: NIFEDIPINE 10 MG CAPSULE PO SCH ×3 (01:02→19:55)
[2017-10-21] MEDS ORDERED: NIFEDIPINE 10 MG CAPSULE ONE ×3 (03:20→19:56)
[2017-10-21 13:31] LABS: APPEARANCE,URINE SLIGHTLY-CLOUDY; BILIRUBIN,URINE NEGATIVE (NEGATIVE); COLOR,URINE YELLOW; GLUCOSE, URINE NEGATIVE (NEGATIVE); KETONES,URINE NEGATIVE (NEGATIVE); LEUKOCYTE ESTERASE,URINE LARGE (NEGATIVE); NITRITE,URINE NEGATIVE (NEGATIVE); PROTEIN,URINE 30 mg/dL (NEGATIVE); URINE SPECIFIC GRAVITY 1.012; UROBILINOGEN,URINE NEGATIVE mg/dL (<2.0)
--- NOTE | 2017-10-21 15:01 | L&D Progress Notes ---
PROGRESS NOTES Datetime Report Generated by CPN: 10/21/2017 15:00 PROGRESS NOTE Impression: Labor Plan: Continue Present Management Informed Consent Obtained: Risks, Benefits and Alternatives Discussed Vital Signs : Reviewed; Within Normal Limits Comment: patient doing well. No further contractions. Indicates +FM x 2. feels "much better". Plan to re-evaluate in AM and if no change in cervix at that time and no further contractions will proceed with discharge home with strict instructions. Starting Keflex now for UTI. VAGINAL EXAM Dilatation: 4 Effacement: 80 Station: 1 MEMBRANES Pooling: Negative Membranes: Intact FETUS A FHR - Baseline: 140 Monitoring: External US Variability: Moderate 6-25bpm Accelerations: 10X10 Decelerations: None : 31.4 : 31.2 Estimated Weight (gm): 1800 Estimated Weight (gm): 1800 Presentation: Vertex FETUS B FHR - Baseline: 145 Monitoring: External US Variability: Moderate 6-25bpm Accelerations: 10X10 Decelerations: None Gestational Age by US: 31.4 Gestational Age by US: 31.2 Estimated Weight (gm): 1800 Estimated Weight (gm): 1800 Presentation: Breech Presentation: Breech SIGNATURE SIGNATURE: [id number] Signature: with User ID: [email or web address]
[2017-10-21] MEDS ORDERED: CEPHALEXIN 500 MG CAPSULE PO SCH (22:00)
[2017-10-22] MEDS ORDERED: NIFEDIPINE 10 MG CAPSULE ONE (03:26)
[2017-10-22] MEDS ORDERED: CEPHALEXIN 500 MG CAPSULE ONE (03:26)
--- NOTE | 2017-10-29 08:31 | Admission Physical ---
Datetime Report Generated by MAXIMUS: 10/29/2017 08:30 Chief Complaint: Uterine Contractions Indication for Induction: Not Applicable Indication for Induction: , Intrauterine Admit Impression- Other: Twin Gestation, previous ACS protocol completed 4 wks ago. Neuroprotection mag given also at that time. gbs + Admit Plan: Admit to Unit; Initiate Labor Protocol Medication Allergies: No Medication Allergies: Mirena Latex: No Latex Allergies Food Allergies: N/A Environmental Allergies: N/A EDC: 12/19/2017 00:00 : 6 Para: 3 Term: 3 : 0 SAB: 1 IAB: 1 Ectopic: 0 Livin Cesareans: 0 VBACs: 0 Multiple Births: 0 Gestational Diabetes: No Rh Sensitization: No Incompetent Cervix: No DAYRON: No Infertility: No ART Treatment: No Uterine Anomaly: No IUGR: No Hx Previous C/S: No Macrosomia: No Hx Loss/Stillborn: No PIH: No Hx : No Placenta Previa/Abruption: No Depression/PP Depression: Yes PTL/PROM: No Post Hemorrhage: No Current Procedures: Ultrasound; NST Alcohol: No Marijuana : No Cocaine: No Other Illicit Drugs: No Cigarettes: Current Everyday Smoker. [id number] Cigarette Frequency: > 10 per day Advised to Stop: Yes Diabetes: No Blood Transfusion: No Pulmonary Disease (Asthma, TB): No Breast Disease: No Hypertension: No Learning Technologies Specialist Surgery: No Heart Disease: No Hosp/Surgery: Yes Autoimmune Disorder: No Anesthetic Complications: No Kidney Disease: Yes Abnormal Pap Smear: No Neuro/Epilepsy: No Psychiatric Disorders: No Other Medical Diseases: No Hepatitis/Liver Disease: No Significant Family History: No Varicosities/Phlebitis: No Trauma/Violence : No Thyroid Dysfunction: No Gonorrhea: No Genital Herpes: No Chlamydia: Yes Tuberculosis: No Syphilis: No Hepatitis: No HIV/AIDS Exposure: No Rash or Viral Illness: No HPV: No General: Normal HEENT: Normal Neurologic: Normal Thyroid: Normal Heart: Normal Lungs: Normal Breast: Normal Back: Normal Abdomen: Normal Genitourinary Exam: Normal Extremities: Normal DTRs: Normal Pelvic Type: Adequate Vital Signs: Reviewed; Within Normal Limits Dilatation: 4 Effacement: 80 Station: 1 Pooling: Negative Membranes: Intact Monitoring: External US FHR- Baseline: 140 Variability: Moderate 6-25bpm Accelerations: 10X10 Decelerations: None FHR Category: Category I FHR Comments: appropriate for gestational age Estimated Weight (gm): 1800 Presentation: Vertex Admit Comment: will give rescue dose of ACS and attempt tocolysis with Procardia. Patient counseled to anticipate delivery but will try to delay as much as possible. Monitoring: External US Monitoring: External US Monitoring: External US Monitoring: External US Monitoring: External US Monitoring: External US Monitoring: External US Monitoring: External US Monitoring: External US Monitoring: External US Monitoring: External US Monitoring: External US Monitoring: External US Monitoring: External US Monitoring: External US Monitoring: External US Monitoring: External US Monitoring: External US Monitoring: External US Monitoring: External US Monitoring: External US Monitoring: External US Monitoring: External US Monitoring: External US Monitoring: External US Monitoring: External US Monitoring: External US Monitoring: External US Monitoring: External US Monitoring: External US Monitoring: External US Monitoring: External US Monitoring: External US Monitoring: External US Monitoring: External US Monitoring: External US Monitoring: External US Monitoring: External US Monitoring: External US Monitoring: External US Monitoring: External US Variability: Moderate 6-25bpm Accelerations: 10X10 Decelerations: None FHR Category: Category I FHR Comments: appropriate for gestational age Estimated Weight (gm): 1800 Presentation: Breech Labor and Delivery: None Pain Management: Epidural Feeding Preference: Breast Benefit of Breast Feed Discussed: Yes Circumcision: N/A Signature: with User ID: [email or web address]
== END 2017-10-22 07:24 | disposition home or self-care (01) | DRG 778 ==
LOC: LC 16:04 → LR 16:42
PROVIDERS: ADMIT Obstetrics & Gynecology; ATTEND Obstetrics & Gynecology
PROC: 4A1HXCZ Monitoring of Products of Conception, Cardiac Rate, External Approach (ICD-10-PCS; principal; 2017-10-19)
DX: O60.03 Preterm labor without delivery, third trimester (principal); O23.43 Unspecified infection of urinary tract in pregnancy, third trimester; O30.003 Twin pregnancy, unspecified number of placenta and unspecified number of amniotic sacs, third trimester; O32.1XX1 Maternal care for breech presentation, fetus 1; O32.1XX2 Maternal care for breech presentation, fetus 2; O99.333 Smoking (tobacco) complicating pregnancy, third trimester; F17.210 Nicotine dependence, cigarettes, uncomplicated; O99.343 Other mental disorders complicating pregnancy, third trimester; F32.9 Major depressive disorder, single episode, unspecified; F41.9 Anxiety disorder, unspecified; O99.820 Streptococcus B carrier state complicating pregnancy; Z3A.31 31 weeks gestation of pregnancy
CPT/HCPCS: 36415; 59025; 80307; 81001; 85025; 86592; 86850; 86900; 86901; 87086; 87088; 87186; J0690; J0702; J2300; J2370; J2540; J2550; J2590; J3010; J3490

== ENCOUNTER 2017-10-29 21:04 | Outpatient (CLI) | payer MEDICAID ==
--- NOTE | 2017-10-29 21:11 | Admission Physical ---
Datetime Report Generated by CPN: 10/29/2017 21:11 CURRENT ADMISSION Chief Complaint: Uterine Contractions Indication for Induction: Not Applicable Indication for Induction: , Intrauterine Admit Impression- Other: Twin Gestation, previous ACS protocol completed 4 wks ago. Neuroprotection mag given also at that time. gbs + Admit Plan: Admit to Unit; Initiate Labor Protocol ALLERGIES Medication Allergies: No Medication Allergies: Mirena Latex: No Latex Allergies Food Allergies: N/A Environmental Allergies: N/A OBSTETRICAL HISTORY EDC: 12/19/2017 00:00 : 6 Para: 3 Term: 3 : 0 SAB: 1 IAB: 1 Ectopic: 0 Livin Cesareans: 0 VBACs: 0 Multiple Births: 0 Gestational Diabetes: No Rh Sensitization: No Incompetent Cervix: No DAYRON: No Infertility: No ART Treatment: No Uterine Anomaly: No IUGR: No Hx Previous C/S: No Macrosomia: No Hx Loss/Stillborn: No PIH: No Hx : No Placenta Previa/Abruption: No Depression/PP Depression: Yes PTL/PROM: No Post Hemorrhage: No Current Procedures: Ultrasound; NST Obstetrical History Comments: G1: 2010, AshishSURESHD, 37 weeks G2: 2011, Ashish , 37.3 weeks G3: 2014, Ashish , 38 weeks G4: 2015, EAB G5: 2016, Bilated Ovum G6: current; dionna twins SEE RECORDS Alcohol: No Marijuana : No Cocaine: No Other Illicit Drugs: No Cigarettes: Current Everyday Smoker. 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: No Heart Disease: No Hosp/Surgery: Yes Autoimmune Disorder: No Anesthetic Complications: No Kidney Disease: Yes Abnormal Pap Smear: No Neuro/Epilepsy: No Psychiatric Disorders: No Other Medical Diseases: No Hepatitis/Liver Disease: No Significant Family History: No Varicosities/Phlebitis: No Trauma/Violence : No Thyroid Dysfunction: No Medical History Comments: Depression, Anxiety, UTI, T_A, wisdom teeth; Anorexia _ Bulemia INFECTIOUS HISTORY Gonorrhea: No Genital Herpes: No Chlamydia: Yes Tuberculosis: No Syphilis: No Hepatitis: No HIV/AIDS Exposure: No Rash or Viral Illness: No HPV: No Infectious History Comments: Hx of + Chlamydia, JUAN Neg PHYSICAL EXAM General: Normal HEENT: Normal Neurologic: Normal Thyroid: Normal Heart: Normal Lungs: Normal Breast: Normal Back: Normal Abdomen: Normal Genitourinary Exam: Normal Extremities: Normal DTRs: Normal Pelvic Type: Adequate Vital Signs: Reviewed; Within Normal Limits VAGINAL EXAM Dilatation: 4 Effacement: 80 Station: 1 MEMBRANES Pooling: Negative Membranes: Intact FETUS A EGA: 31.2 Monitoring: External US FHR- Baseline: 140 Variability: Moderate 6-25bpm Accelerations: 10X10 Decelerations: None FHR Category: Category I FHR Comments: appropriate for gestational age Estimated Weight (gm): 1800 Presentation: Vertex Admit Comment: will give rescue dose of ACS and attempt tocolysis with Procardia. Patient counseled to anticipate delivery but will try to delay as much as possible. FETUS B Monitoring: External US Variability: Moderate 6-25bpm Accelerations: 10X10 Decelerations: None FHR Category: Category I FHR Comments: appropriate for gestational age Estimated Weight (gm): 1800 Presentation: Breech PLANS FOR LABOR AND DELIVERY Labor and Delivery: None Pain Management: Epidural Feeding Preference: Breast Benefit of Breast Feed Discussed: Yes Circumcision: N/A INFORMED CONSENT Informed Consent Obtained: Risks, Benefits and Alternatives Discussed Signature: with User ID: [email or web address]
[2017-10-29 22:04] LABS: APPEARANCE,URINE CLEAR; BILIRUBIN,URINE NEGATIVE (NEGATIVE); COLOR,URINE STRAW; GLUCOSE, URINE NEGATIVE (NEGATIVE); KETONES,URINE NEGATIVE (NEGATIVE); LEUKOCYTE ESTERASE,URINE LARGE (NEGATIVE); NITRITE,URINE NEGATIVE (NEGATIVE); PROTEIN,URINE NEGATIVE (NEGATIVE); URINE SPECIFIC GRAVITY 1.002; UROBILINOGEN,URINE NEGATIVE mg/dL (<2.0)
[2017-10-29 22:11] LABS: AMNISURE (ROM) NEGATIVE (NEGATIVE)
[2017-10-29 22:19] LABS: URINE AMPHETAMINES SCREEN NEGATIVE; URINE BARBITURATES SCREEN NEGATIVE; URINE BENZODIAZEPINES SCREEN NEGATIVE; URINE COCAINE SCREEN NEGATIVE; URINE MARIJUANA (THC) SCREEN NEGATIVE; URINE METHADONE SCREEN NEGATIVE; URINE PHENCYCLIDINE SCREEN NEGATIVE
--- NOTE | 2017-10-29 23:10 | Non Stress Test Report ---
Non Stress Test Datetime Report Generated by CPN: 10/29/2017 23:09 DEMOGRAPHIC Test Number: 1 EGA NST: 32.5 INDICATION Indication for Study (NST) Other: LC URINE RESULTS Urine Protein, NST: Negative Urine Ketones - NST: Negative Urine Glucose - NST: Negative Urine Blood - NST: Negative MONITORING Monitor Explained: Monitor Explained; Test Explained; Patient Verbalized Understanding Time on Monitor: 10/29/2017 21:33 Time off Monitor: 10/29/2017 23:08 NST Duration: 95 NST INTERVENTIONS NST Interventions: PO Hydration; Reposition Patient Physician Notified NST: Beth BABY A: [id number] BABY A Movement : Present Contraction Frequency : x2 +irritability FHR Baseline : 135 Accelerations : 15X15 Decelerations : None Variability : Moderate 6-25bpm NST Review: Meets Criteria for Reactive NST NST Review and Verified By : Yann Nichols RNC NST Results: Reactive BABY B Movement: Present FHR Baseline: 135 Accelerations: 15X15 Decelerations: None Variability: Moderate 6-25bpm NST Review: Meets Criteria for Reactive NST NST Reviewed And Verified By: Yann Nichols RNC NST Results: Reactive NST REPORT Report Trigger: Send Report
== END 2017-10-29 23:15 | disposition home or self-care (01) ==
LOC: LC 21:04
PROVIDERS: ATTEND Obstetrics & Gynecology Gynecology
PROC: 4A1HXCZ Monitoring of Products of Conception, Cardiac Rate, External Approach (ICD-10-PCS; principal; 2017-10-29)
DX: O47.03 False labor before 37 completed weeks of gestation, third trimester (principal); O30.003 Twin pregnancy, unspecified number of placenta and unspecified number of amniotic sacs, third trimester; O99.820 Streptococcus B carrier state complicating pregnancy; O99.333 Smoking (tobacco) complicating pregnancy, third trimester; F17.210 Nicotine dependence, cigarettes, uncomplicated; Z3A.32 32 weeks gestation of pregnancy
CPT/HCPCS: 59025; 80307; 81001; 84112

== ENCOUNTER 2017-10-31 10:20 | Inpatient (IN) | payer MEDICAID ==
[2017-10-31] MEDS ORDERED: PENICILLIN G-K 5 MILLION UNIT VIAL ONE ×2 (10:57→14:45)
[2017-10-31] MEDS ORDERED: RINGERS SOLUTION,LACTATED 1,000 ML IV PRN (10:57)
[2017-10-31] MEDS ORDERED: RINGERS SOLUTION,LACTATED 1,000 ML IV ONE (10:57)
[2017-10-31] MEDS ORDERED: PENICILLIN G POTASSIUM 5,000,000 UNIT in DEXTROSE 5%-WATER 100 ML IV ONE (10:57)
[2017-10-31 11:53] LABS: ABSOLUTE LYMPHOCYTES (AUTO) 2.2 10^3/uL (0.5-4.7); ABSOLUTE MONOCYTES (AUTO) 0.9 10^3/uL (0.1-1.4); ABSOLUTE NEUT (AUTO) 9.5 10^3/uL (1.7-8.2); BASOPHILS % (AUTO) 0.1 % (0-2); EOSINOPHILS % (AUTO) 0.3 % (0-6); HEMATOCRIT 38.5 % (36.0-47.0); HEMOGLOBIN 12.8 g/dL (12.0-15.5); LYMPHOCYTES % (AUTO) 17.5 % (13-45); MEAN CORPUSCULAR HEMOGLOBIN 27.7 pg (27.0-33.4); MEAN CORPUSCULAR HGB CONC 33.2 g/dL (32.0-36.0); MEAN CORPUSCULAR VOLUME 84 fl (80-97); MONOCYTES % (AUTO) 7.2 % (3-13); PLATELET COUNT 173 10^3/uL (150-450); RED BLOOD COUNT 4.61 10^6/uL (3.72-5.28); RED CELL DISTRIBUTION WIDTH 13.7 % (11.5-14.0); SEGMENTED NEUTROPHILS % (AUTO) 74.9 % (42-78); TOTAL CELLS COUNTED % (AUTO) 100 %; WHITE BLOOD COUNT 12.6 10^3/uL (4.0-10.5)
--- NOTE | 2017-10-31 12:31 | Admission Physical ---
Datetime Report Generated by CPN: 10/31/2017 12:31 CURRENT ADMISSION Chief Complaint: Uterine Contractions; Suspected Ruptured Membranes Chief Complaint: Uterine Contractions; Suspected Ruptured Membranes Indication for Induction: Not Applicable Indication for Induction: Not Applicable Admit Impression : , Intrauterine ; Active Labor; Ruptured Membranes Admit Plan: Admit to Unit; Initiate Labor Protocol; Initiate Labor Protocol ALLERGIES Medication Allergies: levonorgestrel (10/31/2017) PHYSICAL EXAM General: Normal HEENT: Normal Neurologic: Normal Thyroid: Deferred Heart: Normal Lungs: Normal Breast: Deferred Back: Normal Abdomen: Normal Genitourinary Exam: Normal Extremities: Normal DTRs: Normal Pelvic Type: Adequate Vital Signs: Reviewed VAGINAL EXAM Dilatation: 5 Effacement: 80 Station: -2 Contraction Comments: q 2-3 FETUS A EGA: 33.0 EGA: 33.0 Monitoring: External US FHR- Baseline: 130 Variability: Moderate 6-25bpm Accelerations: 15X15 Decelerations: None; Prolonged FHR Category: Category I Estimated Weight (gm): 1800 Presentation: Vertex Admit Comment: 22yo at 33+0ega presents from the office with SROM 3 days ago. She was seen 2 days ago with positive pooling but negative amnisure and sent home. She reports that her cramping and leaking increased during the day yesterday and came in for her NST today. Fern verified by 3 providers in the office with positive nitrizine. Spotting noted. Cvx now 5/80/-2 (was previously 3cm). Reviewed SROM with pooling and valsava on exam and regular ctx upon presentation. GBS pos - PCN for GBS pos. Pt considering epidural. Pt is steroid complete and has recieved a rescue dose approx 2 wks ago. Also recieved magnesium for neuroprotection 2 wks ago. Reviewed if attains 6-7 will augment labor if needed. Vtx/breech presentation. REviewed vaginal delivery versus section. Pt desires vaginal delivery and risk and complications reviewed. Desires BTL. Plan for delivery in the OR due to TIUP. NICU aware. INFORMED CONSENT Informed Consent Obtained: Vaginal Delivery; Risks, Benefits and Alternatives Discussed Signature: with User ID: [email or web address]
[2017-10-31] MEDS ORDERED: EPHEDRINE SULFATE INJ 50 MG/1 ML AMPULE ONE (13:08)
[2017-10-31] MEDS ORDERED: FENTANYL CITRATE INJ/PF 100 MCG/2 ML AMPUL ONE (13:08)
[2017-10-31] MEDS ORDERED: PHENYLEPHRINE HCL INJ/PF 10 MG/1 ML SDV ONE (13:08)
[2017-10-31] MEDS ORDERED: BUPIVACAINE HCL 0.25 % INJ/PF (2.5 MG/1 ML) 30 ML VIAL ONE (13:09)
[2017-10-31] MEDS ORDERED: FENTANYL/BUPIVACAINE/NS/PF 200 MCG/100 ML RTUINJ EPI ONE (13:09)
--- NOTE | 2017-10-31 13:23 | L&D Progress Notes ---
PROGRESS NOTES Datetime Report Generated by CPN: 10/31/2017 13:22 PROGRESS NOTE Impression: Normal Progression of Labor Procedures: Sterile Vag Exam Plan: Continue Present Management; Anticipate Vaginal Delivery Informed Consent Obtained: Vaginal Delivery; Risks, Benefits and Alternatives Discussed Informed Consent Obtained: Vaginal Delivery; Risks, Benefits and Alternatives Discussed Vital Signs : Reviewed Comment: cvx 7/90/0. Pt now requesting epidural. Cervical change noted. PPROM. Anticipate . Pt desires c/s if distress and unable to deliver twins vaginally. Reviewed with attempt version of 2nd baby to vertex for delivery. Anticipate VAGINAL EXAM Dilatation: 7 Dilatation: 5 Effacement: 90 Effacement: 80 Station: 0 Station: -2 Contractions: q 2-5 Contractions: q 2-3 FETUS A FHR - Baseline: 145 Monitoring: External US Variability: Moderate 6-25bpm Accelerations: 15X15 Decelerations: None FHR Category: Category I : 31.4 Estimated Weight (gm): 1800 Presentation: Vertex FETUS B FHR - Baseline: 155 Monitoring: External US Variability: Moderate 6-25bpm Accelerations: 15X15 Decelerations: None FHR Category: Category I Presentation: Breech SIGNATURE SIGNATURE: [id number];[id number];[id number] SIGNATURE: [id number];[id number];[id number] SIGNATURE: 14,[id number];[id number];13,[id number] SIGNATURE: [id number];10,[id number] Signature: with User ID: [email or web address]
[2017-10-31 13:26] LABS: APPEARANCE,URINE SLIGHTLY-CLOUDY; BILIRUBIN,URINE NEGATIVE (NEGATIVE); COLOR,URINE YELLOW; GLUCOSE, URINE NEGATIVE (NEGATIVE); KETONES,URINE NEGATIVE (NEGATIVE); LEUKOCYTE ESTERASE,URINE LARGE (NEGATIVE); NITRITE,URINE NEGATIVE (NEGATIVE); PROTEIN,URINE NEGATIVE (NEGATIVE); URINE SPECIFIC GRAVITY 1.004; UROBILINOGEN,URINE NEGATIVE mg/dL (<2.0)
[2017-10-31 13:50] LABS: URINE AMPHETAMINES SCREEN NEGATIVE; URINE BARBITURATES SCREEN NEGATIVE; URINE BENZODIAZEPINES SCREEN NEGATIVE; URINE COCAINE SCREEN NEGATIVE; URINE MARIJUANA (THC) SCREEN NEGATIVE; URINE METHADONE SCREEN NEGATIVE; URINE PHENCYCLIDINE SCREEN NEGATIVE
--- NOTE | 2017-10-31 14:06 | L&D Progress Notes ---
PROGRESS NOTES Datetime Report Generated by CPN: 10/31/2017 14:06 PROGRESS NOTE Impression: Normal Progression of Labor Procedures: Sterile Vag Exam Plan: Continue Present Management; Anticipate Vaginal Delivery Informed Consent Obtained: Vaginal Delivery; Risks, Benefits and Alternatives Discussed Vital Signs : Reviewed Comment: cvx 7-/0. Pt reporting pop and bloody show noted with o/w clear amniotic fluid. Able to now feel a bag on the left - AROM of forebag performed due to unstoppable PTL with PPROM. Anticipate . Pt desires c/s if distress and unable to deliver twins vaginally. Reviewed with attempt version of 2nd baby to vertex for delivery. Anticipate VAGINAL EXAM Dilatation: 7 Effacement: 90 Station: 0 Contractions: q 2-5 FETUS A FHR - Baseline: 145 Monitoring: External US Variability: Moderate 6-25bpm Accelerations: 15X15 Decelerations: None FHR Category: Category I FETUS B FHR - Baseline: 155 Monitoring: External US Variability: Moderate 6-25bpm Accelerations: 15X15 Decelerations: None FHR Category: Category I Presentation: Breech FETUS C SIGNATURE: [id number];,[id number];[id number] Signature: Electronically signed by Gisel Smith MD ([facility]) on 10/31/2017 at 14:06 with User ID: [email or web address]
[2017-10-31] MEDS ORDERED: PENICILLIN G POTASSIUM 2,500,000 UNIT in DEXTROSE 5%-WATER 50 ML IV SCH (14:57)
[2017-10-31] MEDS ORDERED: LIDOCAINE 2%/EPINEPHRINE INJ 20 ML VIAL ONE (14:59)
[2017-10-31] MEDS ORDERED: SODIUM BICARBONATE 8.4% INJ 50 MEQ/50 ML DISP.SYRIN ONE (14:59)
[2017-10-31] MEDS ORDERED: MISOPROSTOL 0.2 MG TABLET ONE ×2 (15:00→15:01)
[2017-10-31] MEDS ORDERED: LIDOCAINE 1% INJ-PF (10 MG/ML) 30 ML SDV ONE (15:00)
[2017-10-31] MEDS ORDERED: OXYTOCIN/NORMAL SALINE 20 UNIT/1,000 ML RTUINJ ONE (15:00)
--- NOTE | 2017-10-31 15:16 | L&D Progress Notes ---
PROGRESS NOTES Datetime Report Generated by CPN: 10/31/2017 15:16 PROGRESS NOTE Impression: Normal Progression of Labor Procedures: Sterile Vag Exam Plan: Continue Present Management; Anticipate Vaginal Delivery Informed Consent Obtained: Vaginal Delivery; Risks, Benefits and Alternatives Discussed Vital Signs : Reviewed Comment: Cvx 8-9/c/+1. Anticipate VAGINAL EXAM Dilatation: 8 Effacement: 90 Station: 1 Contractions: q 2-5 FETUS A FHR - Baseline: 145 Monitoring: External US Variability: Moderate 6-25bpm Accelerations: 15X15 Decelerations: None FHR Category: Category I FETUS B FHR - Baseline: 155 Monitoring: External US Variability: Moderate 6-25bpm Accelerations: 15X15 Decelerations: None FHR Category: Category I FETUS C SIGNATURE: [id number];10,[id number];[id number] Signature: with User ID: [email or web address]
[2017-10-31] MEDS ORDERED: OXYTOCIN/NORMAL SALINE 20 UNIT/1,000 ML RTUINJ IV PRN (16:03)
[2017-10-31] MEDS ORDERED: ACETAMINOPHEN WITH CODEINE #3 TABLET PO PRN ×2 (16:03)
[2017-10-31] MEDS ORDERED: PROMETHAZINE HCL INJ 25 MG/1 ML VIAL IV PRN (16:03)
[2017-10-31] MEDS ORDERED: MAGNESIUM HYDROXIDE SUSP 30 ML UDCUP PO PRN (16:03)
[2017-10-31] MEDS ORDERED: GLYCERIN/WITCH HAZEL LEAF 1 EACH MED..PAD TP PRN (16:03)
[2017-10-31] MEDS ORDERED: BENZOCAINE/MENTHOL AEROSOL SPRAY 56 ML TOP PRN (16:03)
[2017-10-31] MEDS ORDERED: PSEUDOEPHEDRINE HCL 30 MG TABLET PO PRN (16:03)
[2017-10-31] MEDS ORDERED: PROMETHAZINE HCL 25 MG TABLET PO PRN (16:03)
[2017-10-31] MEDS ORDERED: ACETAMINOPHEN 325 MG TABLET PO PRN (16:03)
[2017-10-31] MEDS ORDERED: DIBUCAINE 1% OINTMENT 28 GM TP PRN (16:03)
[2017-10-31] MEDS ORDERED: ZOLPIDEM TARTRATE 5 MG TABLET PO PRN (16:03)
[2017-10-31] MEDS ORDERED: MISOPROSTOL 0.2 MG TABLET PR PRN (16:03)
[2017-10-31] MEDS ORDERED: MEASLES,MUMPS&RUBELLA VACC/PF 0.5 ML VIAL SUBCUT PRN (16:03)
[2017-10-31] MEDS ORDERED: PROMETHAZINE HCL 25 MG SUPP.RECT PR PRN (16:03)
[2017-10-31] MEDS ORDERED: NA PHOS,M-B/NA PHOS,DI-BA (ADULT) 133 ML ENEMA PR PRN (16:03)
[2017-10-31] MEDS ORDERED: DIPH/PERTUSS(ACELL)/TETANUS VAC/PF 0.5 ML SYR (>=10YO) IM PRN (16:03)
[2017-10-31] MEDS ORDERED: DIPHENHYDRAMINE HCL 25 MG CAPSULE PO PRN ×2 (16:03→20:06)
--- NOTE | 2017-10-31 18:14 | Delivery Summary ---
Del Sum A-C Datetime Report Generated by CPN: 10/31/2017 18:14 DELIVERY PERSONNEL DELIVERY PERSONNEL: [id number] Delivery Doctor:: Gisel Smith MD Anesthesiologist:: Rachel Ragland MD Labor and Delivery Nurse:: Nikki Livingston RNrn spine Nurse:: Li Mills RN Neonatal Nurse Practitioner:: DEANA Ng Nursery Nurse:: Annika Garcia RN Director Of Hotel Operations/EXERCISE SCIENCE INTERNSHIP: [employer] Director Of Hotel Operations/EXERCISE SCIENCE INTERNSHIP: [facility] [employer] Additional Personnel: : Rachel López RN. Catalina Murry, PASSENGER TIRE BUILDER MATERNAL INFORMATION Delivery Anesthesia: Epidural Medications After Delivery: Pitocin Bolus-Please Comment; Pitocin Drip 20 Units/1000ml NSS; Other-Please Comment Meds After Delivery Comment: Cytotec 1000 mcg SD Estimated Blood Loss (ml): 250 Maternal Complications: Premature Rupture of Membranes Provider Comments: TIUP at 33+0ega with PPROM and then active labor. Steroid complete. Cervix AL/C/+1 and reviewed with patient indication to proceed to OR. Cervix upon arrival to the OR was c/c/+2. FHR baby A and baby B within normal FHR. Patient placed in stirrups and VFI delivered within 2 pushes without difficulty in Direct OA presentation. Single clamp placed and infant to NICU team. FHR baby B assesed and 160s. Attempted to turn the baby to vertex but did not turn easily and with next contraction both feet delivered into vagina. AROM of Baby B performed. She easily delivered baby B (VFI) in double footling breech presentation with approx 3 pushes. 2 clamps placed on wanda B cord/1 on baby A. Placentas delivered intact spontaneously. No perineal laceartions. Baby B to NICU. Mother and babies are stable upon provider leaving the room. LABOR SUMMARY EDC: 12/19/2017 00:00 No. Babies in Womb: 2 Labor Anesthesia: Epidural LABOR INFORMATION Reason for Induction: Not Applicable Onset of Labor: 10/31/2017 10:46 Complete Dilatation: 10/31/2017 15:42 Oxytocin: N/A Group B Beta Strep: Positive Antibiotics # of Doses: 2 Antibiotics Time of Last Dose: 1452 Name of Antibiotic Given: Penicillin G Steroids Given: Full Course; > 24 Hours before Delivery MEMBRANES Membranes Rupture Method: Spontaneous Rupture of Membranes: 10/29/2017 16:00 Length of Rupture (hr): 47.75 Amniotic Fluid Color: Clear Amniotic Fluid Amount: Small Amniotic Fluid Odor: Normal STAGES OF LABOR Stage 1 hr: 4 Stage 1 min: 56 Stage 2 hr: 0 Stage 2 min: 3 Stage 3 hr: 0 Stage 3 min: 9 Total Time in Labor hr: 5 Total Time in Labor min: 8 VAGINAL DELIVERY Episiotomy: None Laceration #1: None Laceration Extension #1: N/A Laceration Repair: Not Applicable Laceration Repair Note: No perineal laceration Initial Vag Sponge Count: 20 Final Vag Sponge Count: 20 Initial Vag Sharps Count: 2 Final Vag Sharps Count: 2 Sponge Count Correct: Yes Sharps Count Correct: Yes CSECTION DELIVERY Primary Indication: N/A Secondary Indication: N/A CSection Incidence: N/A Labor: N/A Elective: N/A CSection Incision: N/A BABY A INFORMATION Delivery Date/Time: 10/31/2017 15:45 Method of Delivery: Vaginal Born in Route : No : N/A Forceps: N/A Vacuum Extraction: N/A Shoulder Dystocia : No PRESENTATION/POSITION BABY A Presentation: Cephalic Cephalic Presentation: Vertex Vertex Position: Left Occipital Anterior Breech Presentation: N/A PLACENTA INFORMATION BABY A Placenta Delivery Time : 10/31/2017 15:54 Placenta Method of Delivery: Spontaneous Placenta Status: Delivered SCORES BABY A Heart Rate 1 min: >100 bpm Resp Effort 1 min: Good Cry Reflex Irritability 1 min: Cough or Sneeze or Pulls Away Muscle Tone 1 min: Active Motion Color 1 min: Body [place], Extremities Blue Resuscitation Effort 1 min: Tactile Stimulation SCORE 1 MIN: 9 Heart Rate 5 min: >100 bpm Resp Effort 5 min: Good Cry Reflex Irritability 5 min: Cough or Sneeze or Pulls Away Muscle Tone 5 min: Active Motion Color 5 min: Body [place], Extremities Blue Resuscitation Effort 5 min: Tactile Stimulation SCORE 5 MIN: 9 INFANT INFORMATION BABY A Gestational Age at Delivery: 33.0 Gestational Status: - <34 Weeks Outcome : Liveborn Condition : Fair Infant Sex: Female IDENTIFICATION BABY A Verification Date/Time: 12/01/2017 16:42 ID Band Number: [id number] Mother's Name Verified: Yes RN Verifying : RYLAN Henao Additional Verifying Personnel: RYLAN Gallagher WEIGHT/LENGTH BABY A Birthweight (gm): 2106 Infant Weight (lb): 4 Weight (oz): 10 Infant Length (in): 17.50 Length (cm): 44.45 CORD INFORMATION BABY A No. Cord Vessels: 3 Nuchal Cord : N/A Cord Blood Taken: Yes-For Storage (Mom's Blood type +) Infant Suction: None ASSESSMENT BABY A Skin to Skin: No Transferred To: NICU BABY B INFORMATION Infant Delivery Date/Time: 10/31/2017 15:49 Method of Delivery : Vaginal Born in Route : No : N/A Forceps : N/A Vacuum Extraction: N/A Shoulder Dystocia : No SHOULDER DYSTOCIA BABY B Infant Delivery Date/Time: 10/31/2017 15:49 PRESENTATION/POSITION BABY B Presentation : Breech Cephalic Position : N/A Breech Position: Double Footling ROM/PLACENTA INFO BABY B Rupture of Membranes: 10/31/2017 15:47 Length of Rupture (hr): 0.03 Placenta Delivery Time : 10/31/2017 15:54 Placenta Method of Delivery: Spontaneous Placental Status : Delivered SCORES BABY B Heart Rate 1 min: >100 bpm Resp Effort 1 min: Good Cry Reflex Irritability 1 min: Cough or Sneeze or Pulls Away Muscle Tone 1 min: Active Motion Color 1 min: Blue/Pale Resuscitation Effort 1 min: Tactile Stimulation SCORE 1 MIN: 8 Heart Rate 5 min: >100 bpm Resp Effort 5 min: Good Cry Reflex Irritability 5 min: Cough or Sneeze or Pulls Away Muscle Tone 5 min: Active Motion Color 5 min: Body [place], Extremities Blue Resuscitation Effort 5 min: Tactile Stimulation SCORE 5 MIN: 9 INFORMATION BABY B Gestational Age at Delivery: 33.0 Gestational Status : - <34 Weeks Outcome : Liveborn Condition : Fair Sex : Female IDENTIFICATION BABY B Verification Date/Time: 10/31/2017 16:52 ID Band Number : [id number] Mother's Name Verified: Yes Infant RN Verifying : , RN Additional Verifying Personnel: RYLAN Gallagher WEIGHT/LENGTH BABY B Infant Birthweight (gm): 2061 Infant Weight (lb) : 4 Infant Weight (oz): 9 Length (in): 17.50 Infant Length (cm): 44.45 CORD INFORMATION BABY B No. Cord Vessels : 3 Nuchal Cord : N/A Cord Blood Taken : Yes-For Storage (Mom's Blood Type +) ASSESSMENT BABY B Skin to Skin: No Transfer To: NICU SIGNATURES Signature: with User ID: [email or web address]
[2017-10-31] MEDS ORDERED: DIPHENHYDRAMINE HCL 25 MG CAPSULE ONE (20:05)
[2017-10-31] MEDS ORDERED: DIPHENHYDRAMINE HCL 50 MG/ML VIAL IV PRN (20:07)
[2017-10-31] MEDS: DOCUSATE SODIUM 100 MG CAPSULE PO SCH (20:10)
[2017-10-31] MEDS: FERROUS SULFATE 325 MG TABLET PO SCH (20:11)
[2017-10-31] MEDS: IBUPROFEN 800 MG TABLET PO SCH (23:11)
[2017-10-31] MEDS: FAMOTIDINE 20 MG TABLET PO SCH (23:12)
[2017-11-01] MEDS: IBUPROFEN 800 MG TABLET PO SCH ×3 (05:14→22:24)
[2017-11-01 08:40] LABS: HEMATOCRIT 39.8 % (36.0-47.0); HEMOGLOBIN 13.3 g/dL (12.0-15.5); MEAN CORPUSCULAR HEMOGLOBIN 27.8 pg (27.0-33.4); MEAN CORPUSCULAR HGB CONC 33.3 g/dL (32.0-36.0); MEAN CORPUSCULAR VOLUME 83 fl (80-97); PLATELET COUNT 180 10^3/uL (150-450); RED BLOOD COUNT 4.77 10^6/uL (3.72-5.28); RED CELL DISTRIBUTION WIDTH 13.4 % (11.5-14.0); WHITE BLOOD COUNT 17.2 10^3/uL (4.0-10.5)
[2017-11-01] MEDS: PRENATAL VITAMIN W DHA CAPSULE PO SCH (10:30)
[2017-11-01] MEDS: FERROUS SULFATE 325 MG TABLET PO SCH ×2 (10:30→18:12)
[2017-11-01] MEDS: SENNOSIDES/DOCUSATE 8.6-50 MG 1 EACH TABLET PO SCH (10:32)
[2017-11-01] MEDS: DOCUSATE SODIUM 100 MG CAPSULE PO SCH ×2 (10:32→18:12)
[2017-11-01] MEDS: FAMOTIDINE 20 MG TABLET PO SCH ×2 (10:32→22:24)
--- NOTE | 2017-11-01 11:08 | PDOC PROGRESS REPORT ---
Subjective-OB Progress Note for:: 11/01/17 Subjective: tolerating diet without nausea, bleeding slowing, pain controlled with current meds. no needs expressed Physical Exam (OB) Vital Signs: Temp Pulse Resp BP Pulse Ox 98.3 F 68 16 129/69 H 98 11/01/17 08:08 11/01/17 08:08 11/01/17 08:08 11/01/17 08:08 11/01/17 08:08 Intake & Output 10/31/17 11/01/17 11/02/17 06:59 06:59 06:59 Intake Total 740 Balance 740 Weight 78.4 kg - Abdomen Description: Soft Hernia Present: Yes Fundal Description: Firm Fundal Height: u/u - u/2 - Abdominal Tenderness: Nontender - Extremities Lower extremities: Sloan's sign - neg Calf: Normal, Nontender Objective-Diagnostic Laboratory: 11/01/17 07:43 10/31/17 10/31/17 10/31/17 10:33 11:41 11:41 WBC 12.6 H RBC 4.61 Hgb 12.8 Hct 38.5 MCV 84 MCH 27.7 MCHC 33.2 RDW 13.7 Plt Count 173 Seg Neutrophils % 74.9 Lymphocytes % 17.5 Monocytes % 7.2 Eosinophils % 0.3 Basophils % 0.1 Absolute Neutrophils 9.5 H Absolute Lymphocytes 2.2 Absolute Monocytes 0.9 Absolute Eosinophils 0.0 Absolute Basophils 0.0 Urine Color YELLOW Urine Appearance SLIGHTLY-CLOUDY Urine pH 7.0 Ur Specific Worth 1.004 Urine Protein NEGATIVE Urine Glucose (UA) NEGATIVE Urine Ketones NEGATIVE Urine Blood SMALL H Urine Nitrite NEGATIVE Ur Leukocyte Esterase LARGE H Urine WBC (Auto) >182 Urine RBC (Auto) 2 Blood Type B POSITIVE Antibody Screen NEGATIVE 11/01/17 07:43 WBC 17.2 H RBC 4.77 Hgb 13.3 Hct 39.8 MCV 83 MCH 27.8 MCHC 33.3 RDW 13.4 Plt Count 180 Seg Neutrophils % Lymphocytes % Monocytes % Eosinophils % Basophils % Absolute Neutrophils Absolute Lymphocytes Absolute Monocytes Absolute Eosinophils Absolute Basophils Urine Color Urine Appearance Urine pH Ur Specific Worth Urine Protein Urine Glucose (UA) Urine Ketones Urine Blood Urine Nitrite Ur Leukocyte Esterase Urine WBC (Auto) Urine RBC (Auto) Blood Type Antibody Screen Assessment and Plan(PN) - Assessment and Plan (1) Twin , delivered vaginally, current hospitalization Is this a current diagnosis for this admission?: Yes (2) History of depression Is this a current diagnosis for this admission?: Yes - Time Spent with Patient Time with patient: Less than 15 minutes - Disposition Anticipated Discharge: Home Within: within 24 hours
[2017-11-02] MEDS: IBUPROFEN 800 MG TABLET PO SCH (05:17)
[2017-11-02 08:00] VITALS: BP 126/75
[2017-11-02] MEDS: SENNOSIDES/DOCUSATE 8.6-50 MG 1 EACH TABLET PO SCH (09:51)
[2017-11-02] MEDS: PRENATAL VITAMIN W DHA CAPSULE PO SCH (09:51)
[2017-11-02] MEDS: FERROUS SULFATE 325 MG TABLET PO SCH (09:51)
[2017-11-02] MEDS: DOCUSATE SODIUM 100 MG CAPSULE PO SCH (09:52)
[2017-11-02] MEDS: FAMOTIDINE 20 MG TABLET PO SCH (09:52)
--- NOTE | 2017-11-02 10:29 | PDOC DISCHARGE SUMMARY ---
Final Diagnosis Discharge Date: 11/02/17 - Final Diagnosis (1) Twin , delivered vaginally, current hospitalization Is this a current diagnosis for this admission?: Yes (2) History of depression Is this a current diagnosis for this admission?: Yes Discharge Data - Discharge Medication Prescriptions: Acetaminophen with Codeine [Tylenol #3 Tablet] 1 each PO Q4HP PRN #14 tablet PRN Reason: Ibuprofen [Motrin 800 mg Tablet] 800 mg PO Q8 #90 tablet Vit/Dha [ Multi + Dha Capsule] 1 cap PO DAILY #90 capsule Home Medications: Acetaminophen with Codeine [Tylenol #3 Tablet] 1 each PO Q4HP PRN #14 tablet Ibuprofen [Motrin 800 mg Tablet] 800 mg PO Q8 #90 tablet 11/02/17 Vit/Dha [ Multi + Dha Capsule] 1 cap PO DAILY #90 capsule 11/02 Reason(s) for Admission: Onset of Labor Procedures: NST Intrapartum Procedure(s): Spontaneous Vaginal Delivery, Breech Extraction- Partial - Diagnosis Test Laboratory: Temp Pulse Resp BP Pulse Ox 98.3 F 72 20 126/75 H 95 11/02/17 07:40 11/02/17 07:40 11/02/17 07:40 11/02/17 07:32 11/02/17 07:40 10/31/17 10/31/17 11/01/17 10:33 11:41 07:43 RBC 4.61 4.77 Hgb 12.8 13.3 Hct 38.5 39.8 Urine Opiates Screen NEGATIVE - Discharge information/Instructions Discharge Activity: Activity As Tolerated, Balance Activity w/Rest, Pelvic Rest Discharge Diet: Regular Disposition: HOME, SELF-CARE Follow up with: [facility] in: 4, Weeks
== END 2017-11-02 13:29 | disposition home or self-care (01) | DRG 775 ==
LOC: LC 10:20 → LR 11:10 → 2S 17:58
PROVIDERS: ADMIT Student in an Organized Health Care Education/Training Program; ATTEND Student in an Organized Health Care Education/Training Program
PROC: 10E0XZZ Delivery of Products of Conception, External Approach (ICD-10-PCS; principal; 2017-10-31)
PROC: 10907ZC Drainage of Amniotic Fluid, Therapeutic from Products of Conception, Via Natural or Artificial Opening (ICD-10-PCS; 2017-10-31)
PROC: 4A1HXCZ Monitoring of Products of Conception, Cardiac Rate, External Approach (ICD-10-PCS; 2017-10-31)
DX: O60.14X0 Preterm labor third trimester with preterm delivery third trimester, not applicable or unspecified (principal); O32.1XX0 Maternal care for breech presentation, not applicable or unspecified; O30.033 Twin pregnancy, monochorionic/diamniotic, third trimester; O99.824 Streptococcus B carrier state complicating childbirth; O99.334 Smoking (tobacco) complicating childbirth; F17.210 Nicotine dependence, cigarettes, uncomplicated; Z28.21 Immunization not carried out because of patient refusal; Z3A.33 33 weeks gestation of pregnancy; Z37.2 Twins, both liveborn
CPT/HCPCS: 36415; 80307; 81001; 85025; 85027; 86592; 86850; 86900; 86901; 88307; J2370; J2540; J2590; J3010; J3490; Q0114

== ENCOUNTER → 2018-06-18 | Outpatient (CLI) | payer MEDICAID ==
--- NOTE | 2018-06-18 16:16 | RADIOLOGY REPORT (SQ) ---
EXAM DESCRIPTION: U/S NON OB PEL TV W/DOPPLER COMPLETED DATE/TIME: 06/18/2018 4:04 pm REASON FOR STUDY: T83.32XA DISPLACEMENT OF INTRAUTERINE CONTRACEPTIVE DEVICE, INIT T83.32XA DISPLAC EMENT OF INTRAUTERINE CONTRACEPTIVE DEVICE, COMPARISON: None. TECHNIQUE: Dynamic and static grayscale images acquired of the pelvis via transvaginal approach and recorded on PACS. Additional selected color Doppler and spectral images recorded. LIMITATIONS: None. FINDINGS: UTERUS: Contour normal. No mass. ENDOMETRIAL STRIPE: No focal or generalized thickening. No masses. CERVIX: No nabothian cysts. RIGHT OVARY AND DOPPLER: Ovary not visualized. LEFT OVARY AND DOPPLER: Normal size. No worrisome masses. Normal arterial vascular flow without evide nce for torsion. FREE FLUID: None noted. OTHER: No other significant finding. MEASUREMENTS: UTERUS: 8.4 x 3.9 x 5.0 cm ENDOMETRIAL STRIPE: 3 mm RIGHT OVARY: Not visualized. LEFT OVARY: 3.1 x 2.1 x 2.1 cm IMPRESSION: IUD not visualized. TECHNICAL DOCUMENTATION: JOB ID: [id number] [employer]- All Rights Reserved Rev Reading location - IP/workstation name: [email or web address]
== END ==
LOC: RAD 16:29
PROVIDERS: ATTEND Family Medicine
DX: T83.32XA Displacement of intrauterine contraceptive device, initial encounter (principal)
CPT/HCPCS: 76830; 93976

== ENCOUNTER → 2019-04-03 | Outpatient (CLI) | payer BC, MEDICAID ==
[2019-04-03 11:57] LABS: ABSOLUTE BASOPHILS # (AUTO) 0.1 10^3/uL (0.0-0.2); ABSOLUTE EOSINOPHILS # (AUTO) 0.2 10^3/uL (0.0-0.6); ABSOLUTE LYMPHOCYTES (AUTO) 2.5 10^3/uL (0.5-4.7); ABSOLUTE MONOCYTES (AUTO) 0.6 10^3/uL (0.1-1.4); ABSOLUTE NEUT (AUTO) 7.5 10^3/uL (1.7-8.2); BASOPHILS % (AUTO) 0.5 % (0-2); EOSINOPHILS % (AUTO) 1.8 % (0-6); HEMATOCRIT 40.8 % (36.0-47.0); HEMOGLOBIN 13.6 g/dL (12.0-15.5); LYMPHOCYTES % (AUTO) 23.3 % (13-45); MEAN CORPUSCULAR HEMOGLOBIN 26.8 pg (27.0-33.4); MEAN CORPUSCULAR HGB CONC 33.3 g/dL (32.0-36.0); MEAN CORPUSCULAR VOLUME 81 fl (80-97); MONOCYTES % (AUTO) 5.8 % (3-13); PLATELET COUNT 277 10^3/uL (150-450); RED BLOOD COUNT 5.05 10^6/uL (3.72-5.28); RED CELL DISTRIBUTION WIDTH 13.7 % (11.5-14.0); SEGMENTED NEUTROPHILS % (AUTO) 68.6 % (42-78); TOTAL CELLS COUNTED % (AUTO) 100 %; WHITE BLOOD COUNT 10.9 10^3/uL (4.0-10.5)
[2019-04-03 12:20] LABS: ALBUMIN 4.3 g/dL (3.5-5.0); ALKALINE PHOSPHATASE 45 U/L (38-126); ANION GAP 6 (5-19); ASPARTATE AMINO TRANSFERASE 16 U/L (14-36); BILIRUBIN,DIRECT 0.1 mg/dL (0.0-0.4); BILIRUBIN,TOTAL 0.3 mg/dL (0.2-1.3); BLOOD UREA NITROGEN 11 mg/dL (7-20); CARBON DIOXIDE 28 mmol/L (22-30); CHLORIDE 106 mmol/L (98-107); GLUCOSE 86 mg/dL (75-110); POTASSIUM 4.7 mmol/L (3.6-5.0); TOTAL PROTEIN 6.8 g/dL (6.3-8.2)
[2019-04-03 12:27] LABS: C-REACTIVE PROTEIN < 5.0 mg/L (<10.0)
[2019-04-03 12:34] LABS: ERYTHROCYTE SEDIMENTATION RATE 6 mm/hr (0-20)
[2019-04-05 14:12] LABS: ANTINUCLEAR ANTIBODIES Negative (Negative)
== END ==
LOC: OD 11:22
PROVIDERS: ATTEND Nurse Practitioner Family
DX: F90.9 Attention-deficit hyperactivity disorder, unspecified type (principal); R53.83 Other fatigue
CPT/HCPCS: 36415; 80053; 84443; 85025; 85652; 86038; 86140

== ENCOUNTER → 2019-05-15 | Outpatient (CLI) | payer BC, MEDICAID ==
[2019-05-15 16:16] LABS: T.VAGINALIS (WET MOUNT) NO TRICHOMONAS SEEN; WBCS (WET MOUNT) NO WBCS SEEN; YEAST (WET MOUNT) NO YEAST SEEN
[2019-05-15 17:48] LABS: CHLAM PCR NOT DETECTED (NOT DETECT)
== END ==
LOC: LAB 16:07
PROVIDERS: ATTEND Nurse Practitioner Family
DX: N89.8 Other specified noninflammatory disorders of vagina (principal); N93.9 Abnormal uterine and vaginal bleeding, unspecified; R30.0 Dysuria
CPT/HCPCS: 87086; 87088; 87186; 87210; 87491; 87591

== ENCOUNTER 2019-08-26 08:48 | Emergency (ER) | payer BC, MEDICAID ==
--- NOTE | 2019-08-26 09:40 | ER Document Report ---
ED Medical Screen (RME) - General Chief Complaint: Vaginal Bleeding Stated Complaint: VAGINAL BLEEDING Time Seen by Provider: 08/26/19 09:34 Primary Care Provider: DILLON CHING FNP-C [Primary Care Provider] - Follow up as needed TRAVEL OUTSIDE OF THE [place] IN LAST 30 DAYS: No - HPI Notes: 08/26/19 09:40 23-year-old female who is approximately 5 weeks 7 para 5 presents to the emergency room for sudden onset vaginal bleeding that started approximately 830 this morning. Patient is unsure of her last menstrual. Because she states she has had 2 irregular periods in May and June however she was seen at the health department on Friday and they approximated that she is 5+ weeks along. Patient not had an ultrasound yet at this time. Denies any fevers chills, nausea vomiting or diarrhea. Patient states she has had bright red blood. I have greeted and performed a rapid initial assessment of this patient. A comprehensive ED assessment and evaluation of the patient, analysis of test results and completion of the medical decision making process will be conducted by additional ED providers. PHYSICAL EXAMINATION: GENERAL: Well-appearing, well-nourished and in no acute distress. HEAD: Atraumatic, normocephalic. NECK: Normal range of motion CV: s1, s2 regular LUNGS: No respiratory distress Musculoskeletal: Normal range of motion NEUROLOGICAL: Normal speech, normal gait. SKIN: Warm, Dry, normal turgor, no rashes or lesions noted. - Related Data Allergies/Adverse Reactions: levonorgestrel [From Mirena] Allergy (Verified 10/31/17 11:37) Past Medical History Renal/ Medical History: Reports: Hx Kidney Stones. Denies: Hx Peritoneal Dialysis Skin Medical History: Reports Hx Eczema Psychiatric Medical History: Reports: Hx Anxiety Past Surgical History: Reports: Hx Adenoidectomy - [place] teeth, Hx Oral Surgery, Hx Tonsillectomy - Immunizations Hx Diphtheria, Pertussis, Tetanus Vaccination: Yes Physical Exam - Vital signs Vitals: Temp Pulse Resp BP Pulse Ox 97.8 F 103 H 20 154/95 H 100 08/26/19 08:51 08/26/19 08:51 08/26/19 08:51 08/26/19 08:51 08/26/19 08:51 Course - Vital Signs Vital signs: Temp Pulse Resp BP Pulse Ox 97.8 F 103 H 20 154/95 H 100 08/26/19 08:51 08/26/19 08:51 08/26/19 08:51 08/26/19 08:51 08/26/19 08:51 Doctor's Discharge - Discharge Referrals: DILLON CHING FNP-C [Primary Care Provider] - Follow up as needed
[2019-08-26 10:08] LABS: APPEARANCE,URINE SLIGHTLY-CLOUDY; BILIRUBIN,URINE NEGATIVE (NEGATIVE); COLOR,URINE YELLOW; GLUCOSE, URINE NEGATIVE (NEGATIVE); KETONES,URINE NEGATIVE (NEGATIVE); LEUKOCYTE ESTERASE,URINE TRACE (NEGATIVE); NITRITE,URINE NEGATIVE (NEGATIVE); PROTEIN,URINE NEGATIVE (NEGATIVE); UROBILINOGEN,URINE NEGATIVE mg/dL (<2.0)
[2019-08-26 10:14] LABS: ABSOLUTE EOSINOPHILS # (AUTO) 0.1 10^3/uL (0.0-0.6); ABSOLUTE LYMPHOCYTES (AUTO) 2.7 10^3/uL (0.5-4.7); ABSOLUTE MONOCYTES (AUTO) 0.5 10^3/uL (0.1-1.4); ABSOLUTE NEUT (AUTO) 5.7 10^3/uL (1.7-8.2); BASOPHILS % (AUTO) 0.4 % (0-2); HEMOGLOBIN 13.5 g/dL (12.0-15.5); LYMPHOCYTES % (AUTO) 30.1 % (13-45); MEAN CORPUSCULAR HEMOGLOBIN 27.3 pg (27.0-33.4); MEAN CORPUSCULAR HGB CONC 33.6 g/dL (32.0-36.0); MEAN CORPUSCULAR VOLUME 81 fl (80-97); MONOCYTES % (AUTO) 5.4 % (3-13); PLATELET COUNT 253 10^3/uL (150-450); RED BLOOD COUNT 4.93 10^6/uL (3.72-5.28); RED CELL DISTRIBUTION WIDTH 13.2 % (11.5-14.0); SEGMENTED NEUTROPHILS % (AUTO) 63.1 % (42-78); TOTAL CELLS COUNTED % (AUTO) 100 %
[2019-08-26 10:44] LABS: ALBUMIN 4.5 g/dL (3.5-5.0); ALKALINE PHOSPHATASE 45 U/L (38-126); ANION GAP 7 (5-19); ASPARTATE AMINO TRANSFERASE 20 U/L (14-36); BILIRUBIN,DIRECT 0.3 mg/dL (0.0-0.4); BILIRUBIN,TOTAL 0.4 mg/dL (0.2-1.3); BLOOD UREA NITROGEN 13 mg/dL (7-20); CALCIUM 9.9 mg/dL (8.4-10.2); CARBON DIOXIDE 28 mmol/L (22-30); CHLORIDE 105 mmol/L (98-107); GLUCOSE 94 mg/dL (75-110); POTASSIUM 4.2 mmol/L (3.6-5.0); TOTAL PROTEIN 7.5 g/dL (6.3-8.2)
--- NOTE | 2019-08-26 11:04 | RADIOLOGY REPORT (SQ) ---
EXAM DESCRIPTION: U/S OB TRANSVAG W/DOPPLER COMPLETED DATE/TIME: 08/26/2019 10:43 am REASON FOR STUDY: vag bleed 5 weeks COMPARISON: None. TECHNIQUE: Transvaginal static and realtime grayscale images acquired of the pelvis. Additional gerson cted spectral and color Doppler images recorded. All images stored on PACs. CLINICAL AGE: 5 weeks BHCG: Pending. LIMITATIONS: None. FINDINGS: UTERUS: No visualized intrauterine . RIGHT ADNEXA: Normal ovary with normal vascular flow. No adnexal free fluid. No adnexal masses. LEFT ADNEXA: Normal ovary with normal vascular flow. No adnexal free fluid. No adnexal masses. FREE FLUID: None. OTHER: No other significant finding. IMPRESSION: NO VISUALIZED INTRA- OR EXTRAUTERINE . bHCG LEVEL NOT AVAILABLE FOR CORRELATION WITH US FINDINGS. ECTOPIC CANNOT BE EXCLUDED. FOLLOW-UP ULTRASOUND AND SERIAL BHCG LEVELS STRONGLY RECOMMENDED TO ACCURATELY ASSESS STATU S. TECHNICAL DOCUMENTATION: JOB ID: [id number] [email or web address]- All Rights Reserved Reading location - IP/workstation name: [email or web address]
--- NOTE | 2019-08-26 12:26 | ER Document Report ---
ED General - General Chief Complaint: Vaginal Bleeding Stated Complaint: VAGINAL BLEEDING Time Seen by Provider: 08/26/19 09:34 Primary Care Provider: [facility] [NO LOCAL MD] - Follow up tomorrow TRAVEL OUTSIDE OF THE [place] IN LAST 30 DAYS: No - HPI Notes: 23-year-old female to the emergency department with complaints of lower abdominal cramping and vaginal bleeding that began this morning. She states that she is . Her last menstrual period was sometime at the end of June. She states that this is her seventh and she has 5 living children. She does have a history of blighted ovum and miscarriage. She states that she noticed bright red blood and some abdominal cramping after she carried her twins into daycare this morning. She denies any fevers or chills. She states that the vaginal bleeding has stopped since. She states that she has not yet had an ultrasound with this . She has an appointment with the health department tomorrow. She states that she is currently taking a vitamin. She does state that she smokesapproximately 4 to 5 cigarettes a day and she is trying to quit. - Related Data Allergies/Adverse Reactions: levonorgestrel [From Mirena] Allergy (Verified 10/31/17 11:37) Past Medical History - General Information source: Patient Last Menstrual Period: 06/2019 - Social History Smoking Status: Current Every Day Smoker Frequency of alcohol use: None Drug Abuse: None Family History: Reviewed & Not Pertinent Patient has suicidal ideation: No Patient has homicidal ideation: No Renal/ Medical History: Reports: Hx Kidney Stones. Denies: Hx Peritoneal Dialysis Skin Medical History: Reports Hx Eczema Psychiatric Medical History: Reports: Hx Anxiety Past Surgical History: Reports: Hx Adenoidectomy - [place] teeth, Hx Oral Surgery, Hx Tonsillectomy - Immunizations Hx Diphtheria, Pertussis, Tetanus Vaccination: Yes Review of Systems - Review of Systems Constitutional: denies: Chills, Fever EENT: No symptoms reported Cardiovascular: denies: Chest pain, Palpitations, Dyspnea, Syncope, Dizziness, Lightheaded Respiratory: denies: Cough, Short of breath Gastrointestinal: See HPI, Abdominal pain. denies: Diarrhea, Nausea, Vomiting, Constipation Genitourinary: denies: Dysuria, Frequency Female Genitourinary: Last menstrual period - At the end of June, , Vaginal bleeding. denies: Vaginal discharge, Vaginal odor, Painful intercourse Musculoskeletal: denies: Back pain Skin: No symptoms reported Hematologic/Lymphatic: No symptoms reported Neurological/Psychological: No symptoms reported -: Yes All other systems reviewed and negative Physical Exam - Vital signs Vitals: Temp Pulse Resp BP Pulse Ox 97.8 F 103 H 20 154/95 H 100 08/26/19 08:51 08/26/19 08:51 08/26/19 08:51 08/26/19 08:51 08/26/19 08:51 Interpretation: Normal - General General appearance: Appears well, Alert In distress: None - HEENT Head: Normocephalic, Atraumatic Eyes: Normal Pupils: PERRL - Respiratory Respiratory status: No respiratory distress Chest status: Nontender Breath sounds: Normal. No: Rales, Rhonchi, Stridor, Wheezing Chest palpation: Normal - Cardiovascular Rhythm: Regular Heart sounds: Normal auscultation Murmur: No - Abdominal Inspection: Normal Distension: No distension Bowel sounds: Normal Tenderness: Nontender Organomegaly: No organomegaly - Neurological Neuro grossly intact: Yes Cognition: Normal Orientation: AAOx4 Chambers Coma Scale Eye Opening: Spontaneous Chambers Coma Scale Verbal: Oriented Tatiana Coma Scale Motor: Obeys Commands Tatiana Coma Scale Total: 15 Speech: Normal Cranial nerves: Normal Cerebellar coordination: Normal Motor strength normal: LUE, RUE, LLE, RLE Additional motor exam normals: Equal teacher advisor. No: Pronator drift Sensory: Normal - Psychological Associated symptoms: Normal affect, Normal mood - Skin Skin Temperature: Warm Skin Moisture: Dry Skin Color: Normal Course - Re-evaluation Re-evalutation: 08/26/19 Noted ultrasound reading with no gestational sac seen. Patient has a beta quant level of 644.42. This could be simply an early with vaginal bleeding. However I discussed at length with patient that it could also possibly be an early miscarriage and also possibly be an ectopic . I advised patient that she will need to have beta quant trending in the next 48 hours. She has an appointment with the health department tomorrow and I have encouraged her to keep that appointment. She is B+ and RhoGam is not indicated for her. She agrees with the plan. Even her strict return precautions to include return if worsening abdominal pain, heavy vaginal bleeding, chest pain, shortness of breath, passing out. She agrees with the plan. Have encouraged her to continue her vitamin. We will discharge home. - Vital Signs Vital signs: Temp Pulse Resp BP Pulse Ox 98.2 F 68 20 116/66 97 08/26/19 13:12 08/26/19 13:12 08/26/19 08:51 08/26/19 13:12 08/26/19 13:12 noted improved VS. - Laboratory Result Diagrams: 08/26/19 09:49 08/26/19 09:49 Laboratory results interpreted by me: 08/26/19 08/26/19 09:45 09:49 Beta HCG, Quant 644.42 H Urine Blood MODERATE H Ur Leukocyte Esterase TRACE H - Diagnostic Test Radiology reviewed: Image reviewed, Reports reviewed Discharge - Discharge Clinical Impression: Threatened miscarriage in early , Vaginal bleeding Condition: Stable Disposition: HOME, SELF-CARE Instructions: Bleeding During Early ([facility]), Threatened Miscarriage ([facility]) Additional Instructions: YOUR HORMONE WAS 644.42 and NO GESTATIONAL SAC WAS SEEN ON ULTRASOUND TODAY. THIS COULD BE A RESULT OF THREE POSSIBILITIES -- AN EARLY THAT IS STILL GROWING, AN EARLY MISCARRIAGE, OR ECTOPIC . YOU WILL NEED CLOSE MONITORING WITH HORMONES DRAWN EVERY 48 HOURS. PLEASE KEEP YOUR APPOINTMENT AT THE HEALTH DEPARTMENT WITHOUT FAIL. CONTINUE YOUR VITAMINS. RETURN IF WORSENING PAIN, BLEEDING THROUGH MORE THAN 3 PADS IN AN HOUR, CHEST PAIN, OR SHORTNESS OF BREATH OR PASSING OUT. PLEASE STOP SMOKING. NO SEX, NO DOUCHING, AND NO TAMPONS -- THIS CONSTITUTES PELVIC REST. Forms: [facility] to [facility] - Follow up tomorrow
[2019-08-26 13:13] VITALS: BP 116/66
== END 2019-08-26 13:18 | disposition home or self-care (01) ==
LOC: ER 08:48
DX: O20.0 Threatened abortion (principal); N93.8 Other specified abnormal uterine and vaginal bleeding; R10.30 Lower abdominal pain, unspecified; F17.200 Nicotine dependence, unspecified, uncomplicated; Z87.442 Personal history of urinary calculi
CPT/HCPCS: 36415; 76817; 80053; 81001; 83690; 84702; 85025; 86900; 86901; 93976; 99284

== ENCOUNTER 2019-09-06 17:51 | Day surgery (SDC) | payer MEDICAID ==
[~2019-09-06 17:51] MED LIST: GLYCOPYRROLATE 1 MG/5 ML VIAL ONE; NEOSTIGMINE METHYLSULFATE 10 MG/10 ML VIAL ONE; VECURONIUM BROMIDE INJ 10 MG VIAL IV ONE
[2019-09-06] MEDS ORDERED: MIDAZOLAM 2 MG/2 ML INJ ONE (19:02)
[2019-09-06] MEDS ORDERED: FENTANYL CITRATE INJ/PF 100 MCG/2 ML AMPUL ONE (19:02)
[2019-09-06] MEDS ORDERED: KETOROLAC TROMETHAMINE 60 MG/2 ML SDV ONE (19:02)
[2019-09-06] MEDS ORDERED: DEXAMETHASONE SOD PHOSPHATE INJ 4 MG/1 ML VIAL ONE (19:03)
[2019-09-06] MEDS ORDERED: PROPOFOL INJ 200 MG/20 ML VIAL IV ONE (19:03)
[2019-09-06] MEDS ORDERED: ONDANSETRON HCL INJ/PF 4 MG/2 ML SDV ONE ×2 (19:03→21:23)
[2019-09-06 19:24] LABS: HEMATOCRIT 37.8 % (36.0-47.0); MEAN CORPUSCULAR HEMOGLOBIN 27.5 pg (27.0-33.4); MEAN CORPUSCULAR HGB CONC 34.3 g/dL (32.0-36.0); MEAN CORPUSCULAR VOLUME 80 fl (80-97); PLATELET COUNT 258 10^3/uL (150-450); RED BLOOD COUNT 4.71 10^6/uL (3.72-5.28); RED CELL DISTRIBUTION WIDTH 13.4 % (11.5-14.0); WHITE BLOOD COUNT 10.5 10^3/uL (4.0-10.5)
[2019-09-06] MEDS ORDERED: MEPERIDINE HCL/PF INJ 25 MG/1 ML DISP.SYRIN IV PRN (20:50)
[2019-09-06] MEDS ORDERED: MORPHINE SULFATE 10 MG/ML INJ IV PRN (20:50)
[2019-09-06] MEDS ORDERED: DIPHENHYDRAMINE HCL 50 MG/ML VIAL IV PRN (20:50)
[2019-09-06] MEDS ORDERED: ONDANSETRON HCL INJ/PF 4 MG/2 ML SDV IV PRN (20:50)
[2019-09-06] MEDS ORDERED: OXYCODONE-ACETAMINOPHEN 5-325 MG TABLET PO PRN ×4 (20:50→21:53)
[2019-09-06] MEDS ORDERED: FENTANYL CITRATE INJ/PF 100 MCG/2 ML AMPUL IV PRN ×3 (20:50)
[2019-09-06] MEDS ORDERED: PROMETHAZINE HCL INJ 25 MG/1 ML VIAL IV PRN ×2 (20:50)
--- NOTE | 2019-09-06 21:20 | Operative Report ---
Operative Report DATE OF SURGERY: 09/06/19 PREOPERATIVE DIAGNOSIS: left ectopic , POSTOPERATIVE DIAGNOSIS: same OPERATION: laparoscopic left salpingectomy with Dilation and Currettage SURGEON: DORI WILKERSON 1ST CHANNEL EXECUTIVE: NIRAJ MCCARTHY ANESTHESIA: GA TISSUE REMOVED OR ALTERED: left fallopin tube with ectopic , endometrial currettings COMPLICATIONS: none ESTIMATED BLOOD LOSS: 50 cc INTRAOPERATIVE FINDINGS: left ectopic, approximately 50 cc of blood in pelvis, currettings c/w pseudosac PROCEDURE: Patient was taken to the operating room prepared and draped in a normal sterile fashion in a dorsal lithotomy position. An in and out cath was performed of approximately 200 cc of clear urine. The sterile speculum was placed in the vagina and the [place] clamp was transected through the cervix for uterine manipulation. Speculum was removed. She was then turned to the upper portion of the case. Umbilical skin incision was made to accommodate a 5 mm port. It was made with an 11 blade. The varies needle was introduced through this inci jonathan. Peritoneal cavity placement was confirmed with free-flowing sterile water through the varies needle. And an intra-abdominal pressure of less than 5 mmHg. Abdomen was inflated with approximately 2 L of CO2 gas. This was removed and the 5 mm port was placed through this incision with the camera introduced with the above findings noted after the patient was placed into the Trendelenburg. U nder direct visualization another 5 mm port was placed in the left lower quadrant 10 mm port was placed on the patient's right. The bowel was swept away with a blunt probe. The LigaSure was then introduced through the lower port. Traumatic grasper was used to elevate the fallopian tube with the ectopic. The fallopian tube was then transected using the LigaSure the fimbriated end through to the isthmus of the fallopian tube. Once the fallopian tube was completely freed was removed through the 10 mm port. The pelvic cavity was then copiously suction irrigated and the left fallopian tube was inspected and found to be normal in appearance with no evidence of disease. The instruments were then removed and the abdomen was then deflated through the umbilical port then removed. Skin was closed at all 3 sites using 4-0 Vicryl. I then went below and performed a mild dilation and curettage. The cervix was dilated to approximately 10 mm. And a sharp curettage was performed to rid the patient of a concerning an embryonic filled fluid fluid-filled sac. This was done without difficulty and the curettings were removed from the field and sent for pathology as well. The patient tolerated procedure well the instruments were removed at this point she was taken to recovery in stable condition.
[2019-09-06] MEDS: FENTANYL CITRATE INJ/PF 100 MCG/2 ML AMPUL ONE ×2 (21:22→21:29)
[2019-09-06] MEDS ORDERED: MORPHINE SULFATE 10 MG/ML INJ IM PRN (21:51)
[2019-09-06] MEDS ORDERED: RINGERS SOLUTION,LACTATED 1,000 ML IV PRN (21:51)
[2019-09-06] MEDS ORDERED: IBUPROFEN 800 MG TABLET PO PRN (21:52)
[2019-09-06] MEDS ORDERED: OXYCODONE-ACETAMINOPHEN 5-325 MG TABLET ONE (21:53)
[2019-09-06 22:11] VITALS: BP 106/57
--- NOTE | 2019-09-16 11:22 | PDOC DISCHARGE SUMMARY ---
Impression - Admit/DC Date/PCP Admission Date/Primary Care Provider: PAUL LUNDBERG CNM Discharge Date: 09/06/19 - Additional Information Resuscitation Status: Full Code Discharge Diet: As Tolerated, Regular Discharge Activity: Activity As Tolerated, No Driving, Pelvic Rest Referrals: DORI WILKERSON MD [ACTIVE STAFF] - (FOLLOW UP IN 2 WEEKS) PAUL LUNDBERG CNM [Primary Care Provider] - Home Medications: Ibuprofen [Motrin 800 mg Tablet] 800 mg PO Q8 #90 tablet 11/02/17 Dextroamphetamine/Amphetamine [Adderall XR 20 mg Capsule] 1 tab PO DAILY 09/06/19 History of Present Illiness History of Present Illness: GILDA VELASCO is a 24 year old female Physical Exam - Physical Exam Vital Signs: Temp Pulse Resp BP Pulse Ox 97.5 F 68 16 106/57 L 96 09/06/19 22:09 09/06/19 22:09 09/06/19 22:09 09/06/19 22:09 09/06/19 22:09 Results Laboratory Results: WBC 10.5 10^3/uL (4.0-10.5) 09/06/19 19:10 RBC 4.71 10^6/uL (3.72-5.28) 09/06/19 19:10 Hgb 13.0 g/dL (12.0-15.5) 09/06/19 19:10 Hct 37.8 % (36.0-47.0) 09/06/19 19:10 MCV 80 fl (80-97) 09/06/19 19:10 MCH 27.5 pg (27.0-33.4) 09/06/19 19:10 MCHC 34.3 g/dL (32.0-36.0) 09/06/19 19:10 RDW 13.4 % (11.5-14.0) 09/06/19 19:10 Plt Count 258 10^3/uL (150-450) 09/06/19 19:10 Blood Type B POSITIVE 09/06/19 19:10 Antibody Screen NEGATIVE 09/06/19 19:10 Stroke Is this a Stroke Patient?: No Acute Heart Failure - Is this a Heart Failure Patient?: No
== END 2019-09-06 22:40 | disposition home or self-care (01) ==
LOC: EDSTATUS 18:09 → UNDOADMIN 18:17 → INOR 18:17 → ASU 9 21:01 → UNDODISIN 22:40 → ASU 9 22:40
PROVIDERS: ATTEND Obstetrics & Gynecology
DX: O00.102 Left tubal pregnancy without intrauterine pregnancy (principal); O02.1 Missed abortion; N84.0 Polyp of corpus uteri; D64.9 Anemia, unspecified; F17.210 Nicotine dependence, cigarettes, uncomplicated; Z79.899 Other long term (current) drug therapy
CPT/HCPCS: 86900; 86901; 36415; 86850; 85027; 88305 ×2; 01965; 59151; 59820; J2250; J1100; J1885; J3010; J3490 ×2; J2710; J2405; J2704; 1965